=== PATIENT | female | born 1945 | race Caucasian/White ===

== ENCOUNTER → 2020-08-28 10:21 | Outpatient (REF) | payer MEDICARE, SELFPAY | LOC: ANHLAB 10:21 | PROVIDERS: PCP Internal Medicine; Visit Provider Nurse Practitioner | DX: C43.61 Malignant melanoma of right upper limb, including shoulder (principal) | CPT/HCPCS: 88305; 88342 ==

== ENCOUNTER 2020-09-24 14:22 | Outpatient (CLI) | payer MEDICARE, SELFPAY ==
--- NOTE | 2020-09-24 14:25 | ECG_ITS ---
Measurements Intervals [place] Rate: 65 P: 3 [place]: 138 QRS: -12 QRSD: 94 T: 10 QT: 406 QTc: 425 Interpretive Statements SINUS RHYTHM DELAYED PRECORDIAL R/S TRANSITION BORDERLINE ECG Electronically Signed On 09-24-2020 20:01:45 OVEN TECHNICIAN by Stephon Polk D.O.
[2020-09-24 15:00] LABS: Anion Gap 9 mmol/L (8-16); Blood Urea Nitrogen 46 mg/dL (7-17); Calcium 9.9 mg/dL (8.4-10.2); Carbon Dioxide 26 mmol/L (22-30); Chloride 107 mmol/L (98-107); Estimated Glomerular Filt Rate 37; Glucose 130 mg/dL (65-105); Potassium 4.2 mmol/L (3.4-5.0); Sodium 142 mmol/L (137-145)
== END 2020-09-24 14:23 | disposition home or self-care (01) ==
LOC: ANHSURGERY 14:25
PROVIDERS: Anesthesiology; PCP Internal Medicine; Visit Provider Surgery Plastic and Reconstructive Surgery
DX: Z01.818 Encounter for other preprocedural examination (principal); E11.9 Type 2 diabetes mellitus without complications; I10 Essential (primary) hypertension
CPT/HCPCS: 36415; 80048; 93005

== ENCOUNTER 2020-09-25 00:07 | Outpatient (CLI) | payer MEDICARE, SELFPAY ==
[2020-09-25 19:47] LABS: SARS-CoV-2 RNA PCR Negative
== END 2020-09-25 00:08 | disposition home or self-care (01) ==
LOC: ANHCOVIDDT 00:07
PROVIDERS: PCP Internal Medicine; Visit Provider Surgery Plastic and Reconstructive Surgery
DX: Z01.818 Encounter for other preprocedural examination (principal); Z20.828 Contact with and (suspected) exposure to other viral communicable diseases
CPT/HCPCS: 87635; C9803; U0003

== ENCOUNTER 2020-09-28 01:09 | Day surgery (SDC) | payer MEDICARE, SELFPAY ==
[2020-09-24 08:51] VITALS: BMI 29.2
--- NOTE | ~2020-09-28 | NM_ITS ---
EXAMINATION: NM sentinel node w imaging EXAM DATE: 09/28/2020, 6:50 a.m. INDICATION: C43.9 - Malignant melanoma of skin, unspecified. TECHNIQUE: 0.514 mCi Tc-99m Lymphoseek was injected in [two aliquots on either side of right upper a rm melanoma which was biopsied and doctor's office. Study is available for dictation on 10/05/2020. FINDINGS: Images demonstrate 2 right axillary lymph nodes with increased activity following injectio n. These were marked by the technologist prior to surgery. IMPRESSION: Two right axillary lymph nodes identified. Reviewed, dictated and finalized at location A. PHERAL VASCULAR TECH
[2020-09-28] MEDS: LACTATED RINGERS 1,000 ML 30 ML IV CONT (06:47)
[2020-09-28 06:51] LABS: Glucose Point of Care 135 (65-105)
--- NOTE | 2020-09-28 06:53 | WPDANESEPPF ---
Anes - Initial Pre Proc Eval Procedure: Operation Date: 09/28/20 07:30 Proposed Procedures p Excision Melanoma Right Arm with [place] Lymph Node Biopsy, - Zac Solomon MD s Possible Split Thickness Skin Graft - Zac Solomon MD Date/Time: 09/28/20 06:53 Surgeon: Zac Solomon MD Pre Op Diagnosis: melanoma right arm Patient Data Age: 75 Gender: F Height: 5 ft 1 in Weight: 70.35 kg Allergies Allergy/AdvReac Type Severity Reaction Status Date / Time No Known Allergies Allergy Verified 09/24/20 08:27 Home Medications Medication Instructions Recorded Confirmed Type aspirin 81 mg tablet,delayed 81 mg PO QPM 10/27/19 09/24/20 History release rosuvastatin 5 mg tablet 5 mg PO DAILY #90 tablet 10/27/19 09/24/20 Rx vit C-vit X-vixkoa-inhq ox-lutein 1 cap PO DAILY cap 10/27/19 09/24/20 History 226 mg-200 unit-5 mg-0.8 mg capsule diltiazem HCl 120 mg capsule,24 120 mg PO DAILY #90 cap 01/26/20 09/24/20 Rx hr,extended release lisinopril 10 mg tablet 10 mg PO DAILY #90 tablet 02/09/20 09/24/20 Rx blood sugar diagnostic #100 each 03/20/20 07/19/20 Rx hydrochlorothiazide 25 mg tablet 25 mg PO DAILY #90 tablet 06/25/20 09/24/20 Rx glimepiride 2 mg tablet 2 mg PO BID #180 tablet 09/13/20 09/24/20 Rx L. gasseri-B. bifidum-B longum 1 cap PO QAM 09/24/20 09/24/20 History [[facility]] gabapentin 300 mg PO BID 09/24/20 09/24/20 History loratadine [Claritin] 10 mg PO DAILY 09/24/20 09/24/20 History jxqtu-7e-nma-epa-fish oil-D3 [Fish 1 cap PO QAM 09/24/20 09/24/20 History Oil-Vit D3] vit C-E-zinc uk-lzjp-moo-zeax 1 cap PO BID 09/24/20 09/24/20 History [ICaps AREDS2] Laboratory Tests 09/28/20 06:46 POC Capillary Glucose 135 mg/dl H mg/dl (65-105) Patient hx anesthesia problems: other (gasping for air post op) Family hx anesthesia problems: none PMFSH Past Medical History Medical History Abnormal mammogram Acquired hammertoe of right foot Arthritis of foot, degenerative Essential (primary) hypertension History of cataract 2014 Hypertriglyceridemia Obstructive sleep apnea syndrome Primary osteoarthritis of both hands 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 Surgical History Surgical History (Updated 08/28/20 @ 10:06 by Diya Villanueva RN) History of hysterectomy 2009 Family History Family History Grandparent Depression, Onset Age: 91 Hypertension, Onset Age: 93 Acute myocardial infarction, Onset Age: 61 Cerebrovascular accident, Onset Age: 93 Family history of malignant neoplasm, Onset Age: 60 Sibling Acute myocardial infarction Mother Cerebrovascular accident, Onset Age: 89 Family history of congestive heart failure, Onset Age: 89 Father Family history of malignant neoplasm, Onset Age: 60 Other Family history of arthritis Family history of cardiovascular disease Family history of gout Social History Social History Smoking packs per day: 0.5 Smoking cigarettes per day: 10.0 Years smoked: 10 Smoking pack-years: 5.00 Smoking status: Never smoker Tobacco type: cigarettes Second hand tobacco smoke exposure: No Smoking end date: 11/16/1961 Alcohol intake: never Living arrangements: with family Spiritual care concerns: No Anes - Eval Final PreProcedure Day of Procedure 09/28/20 06:53 Patient weight: overweight Heart: regular rate and rhythm Lungs: clear to auscultation Airway: Mallampati scale class II Neurological: alert and oriented Last oral intake: >/= 8 hours ASA classification: III Emergent: no Anesthetic plan: proceed Anesthesia type and monitoring: general LMA and standard monitoring Informed Consent: The patient's anesthetic plan and its attendant
[2020-09-28 07:00] VITALS: BP 157/90; PULSE 77; RESP 16; TEMP 36.9; O2SAT 97
--- NOTE | 2020-09-28 07:01 | WPDHPUPDATE1 ---
History and Physical Update Update Date/Time: 09/28/20 07:01 History and Physical has been reviewed, including an updated exam of the patient. There are NO changes in the patient's condition. Risks, benefits, and alternatives have been discussed and questions answered. Patient agrees to proceed with procedure.
[2020-09-28] MEDS: ceFAZolin 2 GM/D5W 50 ML 2 GM/50 ML BAG IVPB (08:02)
[2020-09-28] MEDS: LIDO 1%/EPINEPHRINE 1:100,000 20 ML VIAL 10 ML INFILTRATE (08:28)
[2020-09-28 09:05] VITALS: BP 123/72; PULSE 80; RESP 16; TEMP 36.2; O2SAT 100
--- NOTE | 2020-09-28 09:12 | PM.PROC ---
Procedure Note - Detailed Date of procedure: 09/28/20 Pre-op diagnosis: melanoma right arm Post-op diagnosis: same Procedure performed: 1. Wide excision of melanoma right upper arm 6.5 cm 2. Complex closure right upper arm 7.5 cm 3. Right axillary sentinel biopsy Description of procedure: Preoperatively she went to radiology was injected with the radionucleotide. She was marked in the preoperative holding area with her verification. She was taken to the operating room placed supine on the operating room table. Anesthesia provided by anesthesiology and prepped and draped in a standard sterile fashion. Proceeded with axillary node 1st. 1% lidocaine and 0.25% Marcaine with epinephrine was used anesthetize locally. I used the probe in order to continue dissection until the node was identified. This was sub pectoralis major. Identified and removed. The background was well less than 10%. There is no evidence of neurovascular or other structure injury. I closed with 2-0 Vicryl followed by 3-0 Monocryl running subcuticular 4-0 Monocryl and tissue glue. The right upper arm was marked out with greater than 2 cm margins. 1% lidocaine and 0.25% Marcaine with epinephrine was used anesthetize locally. Fifteen blade used to make an incision I continued dissection down and was removed just superficial to the fascia. I undermined for closure and closed using 2-0 Vicryl followed by 3-0 Monocryl and or 3-0 nylon. Xeroform fluffs were placed for dressing. She was woken taken the PACU without difficulty. All instrument sponge counts were correct at the end of the case. Anesthesia: GLMA Surgeon: Zac Solomon MD Estimated blood loss (mL): 10 Drains: No Packing: No Pathology: yes Complications: No immediate complications Condition: stable Disposition: PACU
[2020-09-28 09:20] VITALS: BP 128/63; PULSE 77; RESP 12; TEMP 36.2; O2SAT 100
[2020-09-28 09:21] LABS: Glucose Point of Care 145 (65-105)
[2020-09-28 09:35] VITALS: BP 116/61; PULSE 74; RESP 14; O2SAT 99
--- NOTE | 2020-09-28 09:45 | SUR.PHASEI ---
PT AWAKE AND ALERT. DENIES PAIN. READY TO GO TO [facility]
[2020-09-28 09:55] VITALS: BP 147/66; PULSE 74
[2020-09-28 10:25] VITALS: BP 135/63; PULSE 72
== END 2020-09-28 10:48 | disposition home or self-care (01) ==
PROVIDERS: PCP Internal Medicine; Visit Provider Surgery Plastic and Reconstructive Surgery
PROC: (CPT 11606; principal; 2020-09-28 07:30)
DX: C43.61 Malignant melanoma of right upper limb, including shoulder (principal); I10 Essential (primary) hypertension; E78.1 Pure hyperglyceridemia; G47.33 Obstructive sleep apnea (adult) (pediatric); E11.3593 Type 2 diabetes mellitus with proliferative diabetic retinopathy without macular edema, bilateral; Z79.84 Long term (current) use of oral hypoglycemic drugs; Z87.891 Personal history of nicotine dependence
CPT/HCPCS: 11606; 13121; 38525; 36415; 78195; 80048; 87635; 88305; 88307; 93005; A9520; C9803; J0690; J1100; J2405; J2704; J3010; J7120; U0003

== ENCOUNTER 2020-10-26 09:33 | Outpatient (CLI) | payer MEDICARE, SELFPAY ==
[2020-10-26 09:49] LABS: Basophils Percent Auto 0.5 % (0.2-1.2); Eosinophils Absolute Auto 0.4 K/mm3 (0-0.3); Eosinophils Percent Auto 4.9 % (0-4.4); Hematocrit 34.7 % (37.0-47.0); Hemoglobin 11.5 g/dL (12.0-15.0); Immature Granulocyte Absolute 0.02 K/mm3 (0.00-0.031); Immature Granulocyte Percent A 0.2 % (0-0.5); Lymphocytes Absolute Auto 2.42 K/mm3 (0.9-3.2); Lymphocytes Percent Auto 28.6 % (18.3-44.2); Mean Corpuscular HGB Conc 33.1 g/dl (32-36); Mean Corpuscular Hemoglobin 28.3 pg (26-34); Mean Corpuscular Volume 85.5 fl (80-100); Mean Platelet Volume 9.1 fl (7.4-10.4); Monocytes Absolute Auto 0.6 K/mm3 (0.1-0.6); Monocytes Percent Auto 7.5 % (2.6-8.5); Neutrophils Absolute Auto 4.9 K/mm3 (1.3-6.7); Neutrophils Percent Auto 58.3 % (45.5-73.1); Platelet Count Result 275 k/mm3 (150-375); Red Blood Count 4.06 M/mm3 (4.2-5.4); Red Cell Distribution Width 12.8 % (11.5-14.5); White Blood Count 8.5 K/mm3 (4.5-10.0)
[2020-10-26 12:41] LABS: Alanine Aminotransferase 39 U/L (4-35); Albumin Level 4.2 g/dL (3.5-5.1); Alkaline Phosphatase 69 U/L (38-126); Anion Gap 9 mmol/L (8-16); Aspartate Amino Transferase 28 U/L (14-36); Bilirubin,Total 0.3 mg/dL (0.2-1.3); Blood Urea Nitrogen 29 mg/dL (7-17); Carbon Dioxide 28 mmol/L (22-30); Chloride 105 mmol/L (98-107); Estimated Glomerular Filt Rate 48; Glucose 161 mg/dL (65-105); Lactate Dehydrogenase 446 U/L (313-618); Potassium 4.3 mmol/L (3.4-5.0); Sodium 142 mmol/L (137-145)
== END 2020-10-26 09:34 | disposition home or self-care (01) ==
PROVIDERS: PCP Internal Medicine; Visit Provider Internal Medicine Hematology & Oncology
DX: C43.61 Malignant melanoma of right upper limb, including shoulder (principal)
CPT/HCPCS: 36415; 80053; 83615; 85025

== ENCOUNTER → 2021-02-25 12:39 | Outpatient (CLI) | payer MEDICARE, SELFPAY ==
--- NOTE | ~2021-02-25 | MM_ITS ---
EXAMINATION: MM screening mary BI w laron HISTORY: Screening TECHNIQUE: Craniocaudal and mediolateral oblique 3-D tomosynthesis images were obtained and synthetic 2-D images were generated. CAD analysis was submitted and interpreted. COMPARISON: Comparison to multiple prior studies sequentially, with oldest reviewed study dated 06/25. BREAST PARENCHYMAL COMPOSITION: There are scattered areas of fibroglandular density. FINDINGS: There is no evidence of suspicious mass, calcification, or architectural distortion to sugg est malignancy in either breast. There has been no suspicious interval change. IMPRESSION: 1. No mammographic evidence of malignancy. 2. Recommend routine screening mammography in one year. BI-RADS Category 1: Negative Reviewed, dictated and finalized at location A.
== END ==
PROVIDERS: PCP Internal Medicine; Visit Provider Internal Medicine
DX: Z12.31 Encounter for screening mammogram for malignant neoplasm of breast (principal)
CPT/HCPCS: 77063; 77067

== ENCOUNTER 2021-04-12 13:37 | Emergency (ER) | payer MEDICARE, SELFPAY ==
--- NOTE | ~2021-04-12 | US_ITS ---
EXAMINATION: US venous doppler LE RT DATE: 04/12/2021 14:20 INDICATION: Right lower limb pain. TECHNIQUE: Grayscale ultrasound images without and with compression and Doppler ultrasound images of the right lower extremity veins were obtained. COMPARISON: None. FINDINGS: The visualized portions of right common femoral vein, profunda (deep) femoral vein, femoral vein, pop liteal vein, peroneal veins, posterior tibial veins, and greater saphenous vein outflow are patent. IMPRESSION: 1. No deep venous thrombosis. Reviewed, dictated and finalized at location A.
[2021-04-12 13:39] VITALS: BP 159/62; PULSE 72; RESP 20; TEMP 36.6; O2SAT 99
--- NOTE | 2021-04-12 14:44 | ED.LOWEXIN ---
HPI - Extremity Injury (Lower) General Chief Complaint: Extremity Injury, Lower Stated Complaint: rle pain Time Seen by Provider: 04/12/21 13:44 Source: patient Mode of arrival: ambulatory Limitations: no limitations History of Present Illness HPI Narrative: Patient complaining of right lower extremity pain, from the back of her right thigh radiating all the way to her that started approximately 1 month ago. Patient states that her pain is mild, dull aching, nonradiating. Patient denies any injury to the area. Patient denies any chest pain, shortness of breath, fever or chills. Patient denies any joint swelling. Parent states that she is just worried about a blood clot. Related Data Home Medications Medication Instructions Recorded Confirmed aspirin 81 mg tablet,delayed 81 mg PO QPM 10/27/19 03/21/21 release vit C-vit P-szxoje-helo ox-lutein 1 cap PO DAILY cap 10/27/19 03/21/21 226 mg-200 unit-5 mg-0.8 mg capsule ICaps AREDS2 1 cap PO BID 09/24/20 03/21/21 [facility] 1 cap PO QAM 09/24/20 03/21/21 loratadine [Claritin] 10 mg PO DAILY 09/24/20 03/21/21 ovmul-3a-tpp-epa-fish oil-D3 [Fish 1 cap PO QAM 09/24/20 03/21/21 Oil-Vit D3] Allergies Allergy/AdvReac Type Severity Reaction Status Date / Time No Known Allergies Allergy Verified 03/19/21 09:32 Review of Systems Review of Systems: All systems reviewed & are unremarkable except as noted in HPI and below Constitutional: Constitutional: Denies body ache(s), Denies chills, Denies excessive sweating, Denies fatigue, Denies fever(s), Denies headache(s), Denies lethargy, Denies malaise, Denies weakness and Denies weight loss Eyes: Eyes: Denies blurry vision, Denies change in vision and Denies loss of vision ENT: Denies dizziness, Denies ear discharge, Denies headache(s), Denies lip swelling, Denies epistaxis, Denies nasal congestion, Denies neck pain, Denies throat swelling and Denies tongue swelling Cardiovascular: Cardiovascular: Denies chest pain, Denies chest pain at rest, Denies chest pain with activity, Denies diaphoresis, Denies rapid heart rate, Denies edema, Denies irregular heart rhythm, Denies lightheadedness, Denies palpitations, Denies dyspnea and Denies dyspnea on exertion Respiratory: Respiratory: Denies chest congestion, Denies cough, Denies hemoptysis, Denies dyspnea and Denies dyspnea on exertion Gastrointestinal: Gastrointestinal: Denies abdominal pain, Denies melena, Denies hematochezia, Denies diarrhea, Denies nausea, Denies vomiting and Denies hematemesis Musculoskeletal: Musculoskeletal: Denies abnormal gait, Denies deformity, Denies joint swelling, Denies limited range of motion, Denies neck pain and Denies numbness Neurologic: Denies Abnormal speech present, Denies abnormal gait, Denies confusion, Denies dizziness, Denies headache(s), Denies focal weakness, Denies loss of vision, Denies numbness, Denies Other visual disturbances, Denies Sensory deficit (Neuro) and Denies weakness Psychiatric: Psychiatric: Denies confusion, Denies depression, Denies auditory hallucinations, Denies homicidal ideation and Denies suicidal ideation Endocrine: Endocrine: Denies cold intolerance, Denies excessive sweating, Denies fatigue, Denies heat intolerance and Denies palpitations Hematologic/Lymphatic: Hematologic/Lymphatic: Denies easy bleeding and Denies easy bruising Allergic/Immunologic: Allergic/Immunologic: Denies lip swelling, Denies throat swelling and Denies tongue swelling PMFSH Past Medical History Medical History Abnormal mammogram Acquired hammertoe of right foot Arthritis of foot, degenerative Essential (primary) hypertension Hemoglobin A1c less than 7.0% 03/04/21 A1C = 6.4 History of cataract 2014 Hypertriglyceridemia Obstructive sleep apnea syndrome Osteoarthritis of carpometacarpal joint of right thumb Primary osteoarthritis of both hands Type 2 diabetes mellitus with pro
[2021-04-12 15:06] VITALS: BP 130/73; PULSE 60; RESP 18; TEMP 37.1; O2SAT 98
== END 2021-04-12 15:09 | disposition home or self-care (01) ==
PROVIDERS: Emergency Provider Emergency Medicine; PCP Internal Medicine
DX: M79.604 Pain in right leg (principal); E11.3593 Type 2 diabetes mellitus with proliferative diabetic retinopathy without macular edema, bilateral; I10 Essential (primary) hypertension; E78.1 Pure hyperglyceridemia; H26.9 Unspecified cataract; G47.33 Obstructive sleep apnea (adult) (pediatric); M19.079 Primary osteoarthritis, unspecified ankle and foot; M19.042 Primary osteoarthritis, left hand; M19.041 Primary osteoarthritis, right hand; M18.9 Osteoarthritis of first carpometacarpal joint, unspecified; Z79.82 Long term (current) use of aspirin; Z87.891 Personal history of nicotine dependence; Z79.84 Long term (current) use of oral hypoglycemic drugs
CPT/HCPCS: 93971; 99284

== ENCOUNTER 2021-07-29 10:01 | Outpatient (CLI) | payer MEDICARE, SELFPAY ==
[2021-07-29 10:18] LABS: Basophils Percent Auto 0.7 % (0.2-1.2); Eosinophils Absolute Auto 0.3 K/mm3 (0-0.3); Eosinophils Percent Auto 4.6 % (0-4.4); Hematocrit 33.1 % (37.0-47.0); Immature Granulocyte Absolute 0.02 K/mm3 (0.00-0.031); Immature Granulocyte Percent A 0.3 % (0-0.5); Lymphocytes Absolute Auto 1.95 K/mm3 (0.9-3.2); Lymphocytes Percent Auto 31.7 % (18.3-44.2); Mean Corpuscular HGB Conc 33.2 g/dl (32-36); Mean Corpuscular Hemoglobin 28.6 pg (26-34); Mean Corpuscular Volume 86.2 fl (80-100); Mean Platelet Volume 8.9 fl (7.4-10.4); Monocytes Absolute Auto 0.5 K/mm3 (0.1-0.6); Monocytes Percent Auto 8.1 % (2.6-8.5); Neutrophils Absolute Auto 3.4 K/mm3 (1.3-6.7); Neutrophils Percent Auto 54.6 % (45.5-73.1); Platelet Count Result 227 k/mm3 (150-375); Red Blood Count 3.84 M/mm3 (4.2-5.4); Red Cell Distribution Width 13.2 % (11.5-14.5); White Blood Count 6.2 K/mm3 (4.5-10.0)
[2021-07-29 10:21] LABS: Blood Urea Nitrogen 37 mg/dL (8-26); Carbon Dioxide 26 mmol/L (22-30); Chloride 107 mmol/L (98-109); Estimated Glomerular Filt Rate 40; Glucose 104 mg/dL (70-105); Potassium 4.5 mmol/L (3.5-4.9); Sodium 144 mmol/L (138-146)
[2021-07-29 18:44] LABS: Alanine Aminotransferase 37 U/L (4-35); Albumin Level 4.2 g/dL (3.5-5.1); Alkaline Phosphatase 68 U/L (38-126); Anion Gap 10 mmol/L (8-16); Aspartate Amino Transferase 69 U/L (14-36); Bilirubin,Total 0.3 mg/dL (0.2-1.3); Blood Urea Nitrogen 42 mg/dL (7-17); Calcium 9.9 mg/dL (8.4-10.2); Carbon Dioxide 23 mmol/L (22-30); Chloride 110 mmol/L (98-107); Estimated Glomerular Filt Rate 48; Glucose 96 mg/dL (65-110); Lactate Dehydrogenase 565 U/L (313-618); Potassium 4.7 mmol/L (3.4-5.0); Sodium 143 mmol/L (137-145)
== END 2021-07-29 10:02 | disposition home or self-care (01) ==
PROVIDERS: PCP Internal Medicine; Visit Provider Internal Medicine Hematology & Oncology
DX: C43.61 Malignant melanoma of right upper limb, including shoulder (principal)
CPT/HCPCS: 36415; 80048; 80053; 82607; 82728; 83615; 85025

== ENCOUNTER 2021-07-30 11:18 | Outpatient (CLI) | payer MEDICARE, SELFPAY ==
--- NOTE | ~2021-07-30 | XR_ITS ---
EXAMINATION: XR chest 2V 07/30/2021 11:46 INDICATION: Malignant melanoma PROCEDURE: 2 view chest COMPARISON: No prior studies for comparison. FINDINGS: The lungs are clear. The cardiomediastinal silhouette is within normal limits. There are no pleural effusions. There is no pneumothorax suspected. IMPRESSION: 1: NO ACUTE CARDIOPULMONARY DISEASE. Reviewed, dictated and finalized at location A.
== END 2021-07-30 11:19 | disposition home or self-care (01) ==
LOC: ANHIMG 11:23
PROVIDERS: PCP Internal Medicine; Visit Provider Internal Medicine Hematology & Oncology
DX: C43.61 Malignant melanoma of right upper limb, including shoulder (principal)
CPT/HCPCS: 71046

== ENCOUNTER 2022-04-22 12:40 | Outpatient (CLI) | payer MEDICARE, SELFPAY ==
--- NOTE | ~2022-04-22 | US_ITS ---
EXAMINATION: US soft tissue UE RT DATE: 04/22/2022 13:14 INDICATION: TECHNIQUE: Grayscale and Doppler ultrasound images of the right upper arm soft tissues were obtained. COMPARISON: None. FINDINGS: Superficial right upper arm scar from prior melanoma resection. No soft tissue mass detecte d. No soft tissue fluid collection. IMPRESSION: 1. No sonographic abnormality detected in the area of clinical concern. Reviewed, dictated and finalized at location K.
== END 2022-04-22 12:41 | disposition home or self-care (01) ==
LOC: ANHIMG 12:43
PROVIDERS: PCP Internal Medicine; Visit Provider Nurse Practitioner
DX: M79.89 Other specified soft tissue disorders (principal); Z85.820 Personal history of malignant melanoma of skin
CPT/HCPCS: 76882

== ENCOUNTER → 2022-06-30 10:56 | Outpatient (CLI) | payer MEDICARE, SELFPAY ==
--- NOTE | ~2022-06-30 | MM_ITS ---
EXAMINATION: MM screening mary BI w laron HISTORY: Screening mammogram TECHNIQUE: Craniocaudal and mediolateral oblique 3-D tomosynthesis images were obtained and synthetic 2-D images were generated. CAD analysis was submitted and interpreted. COMPARISON: 02/25/2021 bilateral screening mammogram 07/22/2017 bilateral diagnostic mammography and limited right breast ultrasound 06/25/2017 bilateral screening mammogram BREAST PARENCHYMAL COMPOSITION: There are scattered areas of fibroglandular density. FINDINGS: There are occasional scattered benign calcifications. There is no evidence of suspicious ma ss, calcification, or architectural distortion to suggest malignancy in either breast. There has been no suspicious interval change. IMPRESSION: 1. No mammographic evidence of malignancy. 2. Recommend routine screening mammography in one year. BI-RADS Category 2: Benign finding(s). Reviewed, dictated and finalized at location A.
== END ==
PROVIDERS: PCP Family Medicine; Visit Provider Family Medicine
DX: Z12.31 Encounter for screening mammogram for malignant neoplasm of breast (principal)
CPT/HCPCS: 77063; 77067

== ENCOUNTER 2022-07-14 15:22 | Emergency (ER) | payer MEDICARE, SELFPAY ==
[2022-07-14 15:45] VITALS: BP 150/71; PULSE 74; RESP 16; TEMP 36.2; O2SAT 98
--- NOTE | 2022-07-14 16:03 | ED.GENADULT ---
HPI - General Adult General Chief complaint: Extremity Problem,Nontraumatic Stated complaint: toe pain on left foot Time Seen by Provider: 07/14/22 16:03 Source: patient Mode of arrival: ambulatory Limitations: no limitations History of Present Illness HPI narrative: 77 y/o female presented for c/o left 2nd toe pain and redness. States pain started 5 days ago, then redness developed 2 days ago. Symptoms improved yesterday, but worsened today. She started taking colchicine Rates pain 5/10 Hx DM. Related Data Home Medications Medication Instructions Recorded Confirmed omega-3s 360 de-sqm-gtb-fish oil 1 cap PO QAM 09/24/20 07/14/22 1,200 mg-D3 1,000 unit capsule (Fish Oil-Vit D3) vit C 250 mg-vit E 200 unit-zinc 1 cap PO BID 09/24/20 07/14/22 ox 12.5 sj-wryzii-eeuqki-zeax capsule (ICaps AREDS2) multivitamin 1 tablet PO DAILY 07/14/22 07/14/22 pioglitazone 15 mg tablet 15 mg PO DAILY 07/14/22 07/14/22 Allergies Allergy/AdvReac Type Severity Reaction Status Date / Time No Known Allergies Allergy Verified 07/14/22 15:49 Review of Systems Review of Systems: CONSTITUTIONAL: Denies body aches, fever, chills CARDIOVASCULAR: Denies chest pain, palpitations, or edema. RESPIRATORY: Denies cough or dyspnea. SKIN: Denies rash, itching, or wounds. MUSCULOSKELETAL: reports toe pain NEUROLOGIC: Denies headache, numbness, tingling, or weakness. 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 Surgical History Surgical History History of hysterectomy 2009 Family History Family History Grandparent Depression, Onset Age: 91 Hypertension, Onset Age: 93 Acute myocardial infarction, Onset Age: 61 Cerebrovascular accident, Onset Age: 93 Family history of malignant neoplasm, Onset Age: 60 Sibling Acute myocardial infarction Mother Cerebrovascular accident, Onset Age: 89 Family history of congestive heart failure, Onset Age: 89 Father Family history of malignant neoplasm, Onset Age: 60 Other Family history of arthritis Family history of cardiovascular disease Family history of gout Social History Social History Smoking packs per day: 0.5 Smoking cigarettes per day: 10.0 Years smoked: 10 Smoking pack-years: 5.00 Smoking status: Former smoker Tobacco type: cigarettes Second hand tobacco smoke exposure: No Smoking end date: 11/16/1961 Alcohol intake: never Substance use: never Substance use type: does not use Gender identity (if verbalized by the patient): Female Spiritual care concerns: No Comments At time of signature, I have reviewed and agree with nursing past medical, surgical, social and family history unless otherwise noted. Please see nursing chart for further information. There is no relevant family history pertinent to the presenting complaint Exam Narrative: GENERAL: Well-appearing CHEST: No respiratory distress. HEART: Regular rate and rhythm. Normal and equal peripheral pulses. EXTREMITIES: Left 2nd toe redness and mild swelling to DIP and middle phalanx, tender with palpation c/w gout. Foot has normal strength and sensation, normal range of motion. No ecchymosis, open wounds. Nail intact without surrounding swellin
== END 2022-07-14 16:23 | disposition home or self-care (01) ==
PROVIDERS: Emergency Provider Nurse Practitioner Family; PCP Family Medicine
DX: M10.9 Gout, unspecified (principal); Z87.891 Personal history of nicotine dependence; I10 Essential (primary) hypertension; G47.33 Obstructive sleep apnea (adult) (pediatric); M19.042 Primary osteoarthritis, left hand; M19.041 Primary osteoarthritis, right hand; E11.3593 Type 2 diabetes mellitus with proliferative diabetic retinopathy without macular edema, bilateral
CPT/HCPCS: 99213; G0463

== ENCOUNTER 2022-07-22 11:03 | Outpatient (CLI) | payer MEDICARE, SELFPAY ==
[2022-07-22 11:25] LABS: Basophils Absolute Auto 0.1 K/mm3 (0.0-0.1); Basophils Percent Auto 0.6 % (0.2-1.2); Eosinophils Absolute Auto 0.5 K/mm3 (0-0.3); Eosinophils Percent Auto 5.3 % (0-4.4); Hemoglobin 11.5 g/dL (12.0-15.0); Immature Granulocyte Absolute 0.05 K/mm3 (0.00-0.031); Immature Granulocyte Percent A 0.6 % (0-0.5); Lymphocytes Absolute Auto 2.65 K/mm3 (0.9-3.2); Lymphocytes Percent Auto 31.3 % (18.3-44.2); Mean Corpuscular HGB Conc 32.9 g/dl (32-36); Mean Corpuscular Hemoglobin 28.7 pg (26-34); Mean Corpuscular Volume 87.3 fl (80-100); Mean Platelet Volume 9.2 fl (7.4-10.4); Monocytes Absolute Auto 0.7 K/mm3 (0.1-0.6); Monocytes Percent Auto 8.1 % (2.6-8.5); Neutrophils Absolute Auto 4.6 K/mm3 (1.3-6.7); Neutrophils Percent Auto 54.1 % (45.5-73.1); Platelet Count Result 285 k/mm3 (150-375); Red Blood Count 4.01 M/mm3 (4.2-5.4); Red Cell Distribution Width 13.2 % (11.5-14.5); White Blood Count 8.5 K/mm3 (4.5-10.0)
[2022-07-22 13:51] LABS: Anion Gap 7 mmol/L (8-16); Blood Urea Nitrogen 34 mg/dL (7-17); Calcium 10.1 mg/dL (8.4-10.2); Carbon Dioxide 27 mmol/L (22-30); Chloride 105 mmol/L (98-107); Estimated Glomerular Filt Rate 54; Glucose 202 mg/dL (65-110); Potassium 4.4 mmol/L (3.4-5.0); Sodium 139 mmol/L (137-145)
== END 2022-07-22 11:04 | disposition home or self-care (01) ==
LOC: ANHLAB 11:06
PROVIDERS: PCP Family Medicine; Visit Provider Internal Medicine Hematology & Oncology
DX: C43.61 Malignant melanoma of right upper limb, including shoulder (principal)
CPT/HCPCS: 36415; 80048; 85025

== ENCOUNTER 2022-09-04 07:00 | Outpatient (NON) | payer MEDICARE, SELFPAY | END 2022-09-05 12:22 | disposition home or self-care (01) | LOC: HOME HLTH 09-05 12:25 → ANHLAB 09-05 12:56 | PROVIDERS: PCP Family Medicine; Visit Provider Nurse Practitioner | DX: C43.62 Malignant melanoma of left upper limb, including shoulder (principal) | CPT/HCPCS: 88305 ==

== ENCOUNTER 2022-09-11 13:00 | Outpatient (NON) | payer MEDICARE, SELFPAY | END 2022-09-11 13:01 | disposition home or self-care (01) | LOC: ANHLAB 09-12 14:24 | PROVIDERS: PCP Family Medicine; Visit Provider Nurse Practitioner | DX: C43.62 Malignant melanoma of left upper limb, including shoulder (principal) | CPT/HCPCS: 88305; 88342 ==

== ENCOUNTER 2022-10-20 11:11 | Emergency (ER) | payer MEDICARE, SELFPAY ==
--- NOTE | 2022-10-20 11:14 | ED.URI ---
HPI - URI/Sore Throat General Chief Complaint: Upper Respiratory Infection Stated Complaint: SINUS DRAINAGE Time Seen by Provider: 10/20/22 11:14 Source: patient Mode of arrival: ambulatory Limitations: no limitations History of Present Illness HPI Narrative: Mary Kate is a 77-year-old female patient presenting to clinic today with complaints of sinus drainage x11 days. Stated her symptoms began the day after Thanksgiving. Reports that she is having a lot of sinus drainage and cough. Does have some sinus headaches. She denies having any current fevers. She denies any shortness of breath, chest pain, dizziness, or visual changes. MD elicited complaint: sore throat and nasal congestion Related Data Home Medications Medication Instructions Recorded Confirmed vit C 250 mg-vit E 200 unit-zinc 1 cap PO BID 09/24/20 10/20/22 ox 12.5 gd-lqpyti-ckfhet-zeax capsule (ICaps AREDS2) multivitamin 1 tablet PO DAILY 07/14/22 10/20/22 L.acidophilus-B.bifidum-B.longum 1 cap PO DAILY 07/16/22 10/20/22 240 mg (3 billion cell) capsule gabapentin 300 mg capsule See Rx Instructions .Route .COMPLEX 07/16/22 10/20/22 omega [id number]-lrze oil 600 1 cap PO DAILY 07/16/22 10/20/22 mg-20 mg-500 mcg-800 mcg capsule Allergies Allergy/AdvReac Type Severity Reaction Status Date / Time No Known Allergies Allergy Verified 10/20/22 11:22 Review of Systems Review of Systems: Pertinent positives per HPI. Patient denies any fever, chills, rash, headache, visual changes, dizziness, shortness of breath, chest pain, palpitations, nausea, vomiting, diarrhea, constipation, abdominal pain, or any urinary issues. [facility] Past Medical History Medical History Abnormal mammogram Acquired hammertoe of right foot Actinic keratosis Arthritis of foot, degenerative Benign mole Chronic kidney disease, stage 3 (moderate) Crossover toe deformity of right foot Easy bruising Eczema Essential (primary) hypertension Gout Hemoglobin A1c less than 7.0% 03/04/21 A1C = 6.4 History of cataract 2015 Hypertriglyceridemia Macular degeneration Melanoma Obstructive sleep apnea syndrome Osteoarthritis of carpometacarpal joint of right thumb Persistent headaches Personal history of malignant melanoma of skin Primary osteoarthritis of both hands Subcutaneous mass TMJ arthritis Trigger thumb of right hand Type 2 diabetes mellitus with hyperglycemia 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 of congestive heart failure, Onset Age: 89 Father Family history of malignant neoplasm, Onset Age: 60 Other Family history of arthritis Family history of cardiovascular disease Family history of gout Social History Social History Smoking packs per day: 0.5 Smoking cigarettes per day: 10.0 Years smoked: 10 Smoking pack-years: 5.00 Smoking status: Former smoker Tobacco type: cigarettes Second hand tobacco smoke exposure: No Smoking end date: 11/16/1961 Alcohol intake: current Alcohol use details: rarely Substance use: never Substance use type: does not use Lack of Transportation: No Lack of Food: Never True Current Housing: I Have Housing Concerned About Future Housing: No
[2022-10-20 11:25] VITALS: BP 159/70; PULSE 85; RESP 16; TEMP 36.7; O2SAT 98
== END 2022-10-20 11:34 | disposition home or self-care (01) ==
PROVIDERS: Emergency Provider Nurse Practitioner Family; PCP Family Medicine
DX: J01.90 Acute sinusitis, unspecified (principal); Z87.891 Personal history of nicotine dependence; M10.9 Gout, unspecified; E78.1 Pure hyperglyceridemia; H35.30 Unspecified macular degeneration; I12.9 Hypertensive chronic kidney disease with stage 1 through stage 4 chronic kidney disease, or unspecified chronic kidney disease; E11.22 Type 2 diabetes mellitus with diabetic chronic kidney disease; N18.30 Chronic kidney disease, stage 3 unspecified; E11.3593 Type 2 diabetes mellitus with proliferative diabetic retinopathy without macular edema, bilateral; M18.11 Unilateral primary osteoarthritis of first carpometacarpal joint, right hand; M19.042 Primary osteoarthritis, left hand; M19.041 Primary osteoarthritis, right hand; Z85.820 Personal history of malignant melanoma of skin
CPT/HCPCS: 99213; G0463

== ENCOUNTER 2022-11-26 08:41 | Outpatient (CLI) | payer MEDICARE, SELFPAY ==
--- NOTE | ~2022-11-26 | DEXA_ITS ---
Bone Density Report Name: EDWIGE WHITMAN Age: 77 Sex: Female Ethnicity: White Date of : 1945 Indication: postmenopausal; screening for osteoporosis; height loss; Referring Provider: DANIELE WEAVER Study: Bone densitometry was performed. Exam Date: November 26, 2022 Accession number: [id number] Bone Density: Region BMD T-score Z-score Classification AP Spine(L1-L4) 1.162 1.0 3.6 Normal Femoral Neck (Left) 0.657 -1.7 0.5 Osteopenia Total Hip (Left) 0.922 -0.2 1.8 Normal Femoral Neck (Right) 0.792 -0.5 1.7 Normal Total Hip (Right) 0.929 -0.1 1.9 Normal Total Hip Mean 0.926 -0.2 1.9 Normal World Health Organization criteria for BMD impression classify patients as: Normal (T-score at or above -1.0), Osteopenia (T-score between -1.0 and -2.5), or Osteoporosis (T-score at or below -2.5). 10-year Fracture Risk(1): Major Osteoporotic Fracture 13% Hip Fracture 3.2% Reported Risk Factors: [place] (), Neck BMD=0.657, BMI=31.2 (1) FRAX(R) Version 3.08. Fracture probability calculated for an untreated patient. Fracture probability may be lower if the patient has received treatment. Clinical Information Provided by Patient: Patient maximum height was 62 Menopause Age: 57 Drinks caffeinated beverages Onset of menses at age 12 Number of children 4 Impression: The patient has low bone mass, based on the Left Femoral Neck T-score. The patient has an estimated ten-year risk of hip fracture of 3.2% and an estimated ten-year risk of major fracture of 13%, based on the WHO FRAX algorithm. Discussion: BONE DENSITY IS LOW AT ONE OR MORE SKELETAL SITES. THE PATIENT'S BMD AND CLINICAL RISK FACTORS CONTRIBUTE TO THIS PATIENT'S INCREASED RISK OF FRACTURE. This patient's lowest T-score is low at one or more skeletal sites. It meets the World Health Organization's (WHO) criteria for ?low bone mass? (T-score between -1.0 and -2.5). The patient's 10-year risk of hip fracture as calculated by FRAX exceeds the threshold where pharmacological therapy is recommended by the National Osteoporosis Foundation (NOF). However, all treatment decisions require clinical judgment and consideration of individual patient factors, including patient preferences, comorbidities, previous drug use, risk factors not captured in the FRAX model (e.g., frailty, falls, vitamin D deficiency, increased bone turnover, interval significant decline in bone density) and possible under or overestimation of fracture risk by FRAX. The patient should follow a healthful lifestyle (good nutrition with adequate calcium and vitamin D, and appropriate weight-bearing exercise). Follow-Up: Consider a repeat BMD and Vertebral Fracture Assessment (VFA) exam in 2 years or sooner if medically necessary, to reassess this patien
== END 2022-11-26 08:42 | disposition home or self-care (01) ==
LOC: ANHIMG 08:43
PROVIDERS: PCP Family Medicine; Visit Provider Internal Medicine Endocrinology, Diabetes & Metabolism
DX: Z78.0 Asymptomatic menopausal state (principal); Z85.820 Personal history of malignant melanoma of skin; M85.852 Other specified disorders of bone density and structure, left thigh
CPT/HCPCS: 77080

== ENCOUNTER 2022-12-24 00:07 | Day surgery (SDC) | payer MEDICARE, SELFPAY ==
[2022-12-11 13:16] VITALS: BMI 30.8
[2022-12-24 07:46] VITALS: BP 163/68; PULSE 80; RESP 16; TEMP 36.1; O2SAT 98
[2022-12-24] MEDS: LACTATED RINGERS 1,000 ML 150 ML IV CONT (07:50)
[2022-12-24 07:56] LABS: Glucose Point of Care 121 mg/dl (65-105)
--- NOTE | 2022-12-24 08:38 | WPDANESEPPF ---
Anes - Initial Pre Proc Eval Procedure: Operation Date: 12/24/22 09:00 Proposed Procedures p Esophagogastroduodenoscopy - Minh Mo MD Date/Time: 12/24/22 08:38 Surgeon: Minh Mo MD Pre Op Diagnosis: GERD Patient Data Age: 77 Gender: F Height: 1.55 m Weight: 73.5 kg Last Vital Signs Temp 97 F L 12/24/22 07:46 Pulse 80 12/24/22 07:46 Resp 16 12/24/22 07:46 BP 163/68 H 12/24/22 07:46 Pulse Ox 98 12/24/22 07:46 O2 Del Method Room Air 12/24/22 07:46 Allergies Allergy/AdvReac Type Severity Reaction Status Date / Time No Known Allergies Allergy Verified 12/24/22 07:45 Home Medications Medication Instructions Recorded Confirmed Type vit C 250 mg-vit E 200 unit-zinc 1 cap PO BID 09/24/20 12/24/22 History ox 12.5 ox-owtbpe-qkukpv-zeax capsule (ICaps AREDS2) hydrochlorothiazide 25 mg tablet 25 mg PO DAILY #90 tabs 09/05/21 12/24/22 Rx blood sugar diagnostic (Accu-Chek #100 ea 01/10/22 10/14/22 Rx Valeria Plus test strips) multivitamin 1 tablet PO DAILY 07/14/22 12/24/22 History diltiazem HCl 120 mg capsule,24 120 mg PO DAILY #90 caps 07/15/22 12/24/22 Rx hr,extended release L.acidophilus-B.bifidum-B.longum 1 cap PO DAILY 07/16/22 12/24/22 History 240 mg (3 billion cell) capsule omega [id number]-R-KS-tnvc oil 600 1 cap PO DAILY 07/16/22 12/24/22 History mg-20 mg-500 mcg-800 mcg capsule lisinopril 10 mg tablet 10 mg PO DAILY #90 tabs 08/11/22 12/24/22 Rx rosuvastatin 10 mg tablet 10 mg PO DAILY #90 tabs 10/14/22 12/24/22 Rx gabapentin 300 mg capsule 300 mg PO TID 11/18/22 12/24/22 History glimepiride 2 mg tablet 2 mg PO BID 11/18/22 12/24/22 History Laboratory Tests 12/24/22 07:50 POC Capillary Glucose 121 mg/dl H mg/dl (65-105) Patient hx anesthesia problems: none Family hx anesthesia problems: none Results Review: All pre-operative results and documents have been reviewed as part of the pre-operative evaluation. [facility] Past Medical History Medical History Abnormal mammogram Acquired hammertoe of right foot Actinic keratosis Arthritis of foot, degenerative Benign mole Chronic kidney disease, stage 3 (moderate) Crossover toe deformity of right foot Easy bruising Eczema Essential (primary) hypertension Gout Hemoglobin A1c less than 7.0% 03/04/21 A1C = 6.4 History of cataract 2014 Hypertriglyceridemia Macular degeneration Melanoma Obstructive sleep apnea syndrome Osteoarthritis of carpometacarpal joint of right thumb Persistent headaches Personal history of malignant melanoma of skin Primary osteoarthritis of both hands Subcutaneous mass TMJ arthritis Trigger thumb of right hand Type 2 diabetes mellitus with hyperglycemia 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 of congestive heart failure, Onset Age: 89 Father Family history of malignant neoplasm, Onset Age: 60 Other Family history of arthritis Family history of cardiovascular disease Family history of gout Social History Social History Smoking packs per day: 0.5 Smoking cigarettes per day: 10.0 Years smoked: 10 Smoking pack-years: 5.00 Smoking status: Former smoker Tobacco
--- NOTE | 2022-12-24 08:55 | PM.HPGS ---
History of Present Illness History of Present Illness Consent: Risks, benefits, and alternatives have been discussed and questions answered. Patient agrees to proceed with procedure. Chief complaint: GERD Narrative: Mary Kate Avila is a 77 year old female with gerd and sometimes dysphagia after eating, never had egd, only using tums as needed Review of Systems Constitutional: Constitutional: Denies headache(s) and Denies weakness Eyes: Eyes: Denies blurry vision ENT: Reports Normal hearing present, Denies headache(s) and Denies neck pain Cardiovascular: Cardiovascular: Denies chest pain and Denies dyspnea Respiratory: Respiratory: Denies dyspnea Gastrointestinal: Gastrointestinal: Reports no additional gastrointestinal complaints Genitourinary: Genitourinary: Denies dysuria Musculoskeletal: Musculoskeletal: Denies neck pain Integumentary/Breasts: Skin/Breast: Denies dry skin Neurologic: Reports Normal hearing present, Denies headache(s) and Denies weakness Psychiatric: Psychiatric: Denies anxiety Endocrine: Endocrine: Denies change in body appearance Hematologic/Lymphatic: Hematologic/Lymphatic: Denies easy bleeding Allergic/Immunologic: Allergic/Immunologic: Denies urticaria PMF Past Medical History Medical History (Updated 12/24/22 @ 08:56 by Minh Mo MD) Abnormal mammogram Acquired hammertoe of right foot Actinic keratosis Arthritis of foot, degenerative Benign mole Chronic kidney disease, stage 3 (moderate) Crossover toe deformity of right foot Dysphagia Easy bruising Eczema Essential (primary) hypertension GERD (gastroesophageal reflux disease) Gout Hemoglobin A1c less than 7.0% 03/04/21 A1C = 6.4 History of cataract 2014 Hypertriglyceridemia Macular degeneration Melanoma Obstructive sleep apnea syndrome Osteoarthritis of carpometacarpal joint of right thumb Persistent headaches Personal history of malignant melanoma of skin Primary osteoarthritis of both hands Subcutaneous mass TMJ arthritis Trigger thumb of right hand Type 2 diabetes mellitus with hyperglycemia 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 Surgical History Surgical History History of hysterectomy 2009 History of melanoma excision 2019 Family History Family History Grandparent Depression, Onset Age: 91 Hypertension, Onset Age: 93 Acute myocardial infarction, Onset Age: 61 Cerebrovascular accident, Onset Age: 93 Family history of malignant neoplasm, Onset Age: 60 Sibling Acute myocardial infarction Mother Cerebrovascular accident, Onset Age: 89 Family history of congestive heart failure, Onset Age: 89 Father Family history of malignant neoplasm, Onset Age: 60 Other Family history of arthritis Family history of cardiovascular disease Family history of gout Social History Social History Smoking packs per day: 0.5 Smoking cigarettes per day: 10.0 Years smoked: 10 Smoking pack-years: 5.00 Smoking status: Former smoker Tobacco type: cigarettes Second hand tobacco smoke exposure: No Smoking end date: 11/16/1961 Alcohol intake: current Alcohol use details: rarely Substance use: never Substance use type: does not use Lack of Transportation: No Lack of Food: Never True Current Housing: I Have Housing Concerned About Future Housing: No Difficulty Paying Gas/Electric Bills: No Difficulty Paying for Meds: No Currently Unemployed: No Education: Decline to Answer Difficulty w/ Childcare or Family Care: No Living arrangements: with family Occupation/Education: retired Gender identity (if verbalized by the patient): Female Spiritual care concerns: No Meds Alexei
[2022-12-24 09:12] VITALS: BP 131/81; PULSE 70; RESP 22; O2SAT 97
[2022-12-24 09:22] VITALS: BP 129/78; PULSE 68; RESP 21; O2SAT 100
[2022-12-24 09:33] VITALS: BP 147/88; PULSE 67; RESP 20; O2SAT 100
== END 2022-12-24 09:40 | disposition home or self-care (01) ==
PROVIDERS: PCP Family Medicine; Visit Provider Internal Medicine Gastroenterology
PROC: 0DJ08ZZ Inspection of Upper Intestinal Tract, Via Natural or Artificial Opening Endoscopic (ICD-10-PCS; CPT 43235; principal; 2022-12-24 09:00)
DX: K21.00 Gastro-esophageal reflux disease with esophagitis, without bleeding (principal); R13.10 Dysphagia, unspecified; K29.70 Gastritis, unspecified, without bleeding; I12.9 Hypertensive chronic kidney disease with stage 1 through stage 4 chronic kidney disease, or unspecified chronic kidney disease; E11.22 Type 2 diabetes mellitus with diabetic chronic kidney disease; N18.30 Chronic kidney disease, stage 3 unspecified; G47.33 Obstructive sleep apnea (adult) (pediatric); H35.30 Unspecified macular degeneration; E11.3593 Type 2 diabetes mellitus with proliferative diabetic retinopathy without macular edema, bilateral; Z87.891 Personal history of nicotine dependence; E66.9 Obesity, unspecified; Z68.30 Body mass index [BMI] 30.0-30.9, adult; Z79.84 Long term (current) use of oral hypoglycemic drugs
CPT/HCPCS: 43239; 43450; 82948; 88305; J2704; J7120

== ENCOUNTER 2023-01-01 09:55 | Emergency (ER) | payer MEDICARE, SELFPAY ==
--- NOTE | 2023-01-01 09:57 | ED.FEMALEGU ---
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 Patient states that she is due for a bladder sling next week. States that she has had issues with her bladder but has not been on antibiotics recently. Denies any abdominal pain, blood in the urine, nausea or vomiting. No other acute complaints. No acute distress noted. Patient aware of the plan of care. Some parts of this dictation were generated by voice recognition software and may contain typographical and/or grammatical inaccuracies. Related Data Home Medications Medication Instructions Recorded Confirmed vit C 250 mg-vit E 200 unit-zinc 1 cap PO BID 09/24/20 01/01/23 ox 12.5 iq-nlaagd-wckqha-zeax capsule (ICaps AREDS2) multivitamin 1 tablet PO DAILY 07/14/22 01/01/23 L.acidophilus-B.bifidum-B.longum 1 cap PO DAILY 07/16/22 01/01/23 240 mg (3 billion cell) capsule omega [id number]-TW-qzkk oil 600 1 cap PO DAILY 07/16/22 01/01/23 mg-20 mg-500 mcg-800 mcg capsule gabapentin 300 mg capsule 300 mg PO TID 11/18/22 01/01/23 glimepiride 2 mg tablet 2 mg PO BID 11/18/22 01/01/23 Allergies Allergy/AdvReac Type Severity Reaction Status Date / Time No Known Allergies Allergy Verified 01/01/23 10:10 Review of Systems Review of Systems: CONSTITUTIONAL: Denies fever, chills, or sweats. EYES: Denies visual changes, redness, or discharge. ENT: Denies rhinorrhea, congestion, sore throat, or otalgia. CARDIOVASCULAR: Denies chest pain, palpitations, or edema. RESPIRATORY: Denies cough or dyspnea. GASTROINTESTINAL: Denies abdominal pain, nausea, vomiting, or diarrhea. GENITOURINARY: Reports of dysuria cloudy urine SKIN: Denies rash or itching. MUSCULOSKELETAL: Denies back pain, joint pain, or myalgia. NEUROLOGIC: Denies headache, numbness, or weakness. All other systems reviewed are negative, except as documented in HPI. [facility] Past Medical History Medical History (Updated 01/01/23 @ 10:38 by CADE Tate) Abnormal mammogram Acquired hammertoe of right foot Actinic keratosis Arthritis of foot, degenerative Benign mole Chronic kidney disease, stage 3 (moderate) Crossover toe deformity of right foot Dysphagia Easy bruising Eczema Essential (primary) hypertension GERD (gastroesophageal reflux disease) Gout Hemoglobin A1c less than 7.0% 03/04/21 A1C = 6.4 History of cataract 2014 Hypertriglyceridemia Macular degeneration Melanoma Obstructive sleep apnea syndrome Osteoarthritis of carpometacarpal joint of right thumb Persistent headaches Personal history of malignant melanoma of skin Primary osteoarthritis of both hands Subcutaneous mass TMJ arthritis Trigger thumb of right hand Type 2 diabetes mellitus with hyperglycemia 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 of congestive heart failure, Onset Age: 89 Father Family history of malignant neoplasm, Onset Age: 60 Other Family history of arthritis Family history of cardiovascular disease Family history of gout Social History Social History (Reviewed
[2023-01-01 10:14] VITALS: BP 142/89; PULSE 77; RESP 16; TEMP 36.4; O2SAT 100
== END 2023-01-01 10:52 | disposition home or self-care (01) ==
PROVIDERS: Emergency Provider Nurse Practitioner Family; PCP Family Medicine
DX: N39.0 Urinary tract infection, site not specified (principal); Z87.891 Personal history of nicotine dependence; I12.9 Hypertensive chronic kidney disease with stage 1 through stage 4 chronic kidney disease, or unspecified chronic kidney disease; E11.22 Type 2 diabetes mellitus with diabetic chronic kidney disease; N18.30 Chronic kidney disease, stage 3 unspecified; K21.9 Gastro-esophageal reflux disease without esophagitis; M10.9 Gout, unspecified; M19.042 Primary osteoarthritis, left hand; M19.041 Primary osteoarthritis, right hand; H35.30 Unspecified macular degeneration; E11.3593 Type 2 diabetes mellitus with proliferative diabetic retinopathy without macular edema, bilateral; Z85.820 Personal history of malignant melanoma of skin; M18.11 Unilateral primary osteoarthritis of first carpometacarpal joint, right hand; Z79.84 Long term (current) use of oral hypoglycemic drugs
CPT/HCPCS: 81003; 87086; 87147; 87181; 87186; 99213; G0463

== ENCOUNTER 2023-01-29 10:26 | Emergency (ER) | payer MEDICARE, SELFPAY ==
[2023-01-29 10:34] VITALS: BP 140/113; PULSE 86; RESP 16; TEMP 36.4; O2SAT 99
--- NOTE | 2023-01-29 10:47 | ED.URI ---
HPI - URI/Sore Throat General Chief Complaint: Urogenital-Female Stated Complaint: PAINFUL URINATION & HEAD/CHEST CONGESTION Time Seen by Provider: 01/29/23 10:47 Source: patient and RN notes reviewed Mode of arrival: ambulatory Limitations: no limitations History of Present Illness HPI Narrative: 77-year-old female presents multiple concerns. She reports on Thursday she started having dysuria, frequency, urgency, cloudy urine. Reports last week she saw her urologist a device placed her bladder. Reports her symptoms started then. She reports on Thursday she also started having cough, chest congestion, rhinorrhea, nasal congestion. Reports she has been taking Mucinex without relief. She reports low-grade temperature. Denies abdominal pain nausea, back pain. She reports exertional shortness of breath MD elicited complaint: cough and other (UTI) Related Data Home Medications Medication Instructions Recorded Confirmed vit C 250 mg-vit E 200 unit-zinc 1 cap PO BID 09/24/20 01/29/23 ox 12.5 lg-tqxfab-nhlgue-zeax capsule (ICaps AREDS2) multivitamin 1 tablet PO DAILY 07/14/22 01/29/23 L.acidophilus-B.bifidum-B.longum 1 cap PO DAILY 07/16/22 01/29/23 240 mg (3 billion cell) capsule omega [id number]-L-FH-qzgn oil 600 1 cap PO DAILY 07/16/22 01/29/23 mg-20 mg-500 mcg-800 mcg capsule gabapentin 300 mg capsule 300 mg PO TID 11/18/22 01/29/23 Allergies Allergy/AdvReac Type Severity Reaction Status Date / Time No Known Allergies Allergy Verified 01/29/23 10:33 Review of Systems Review of Systems: CONSTITUTIONAL: Report malaise, low-grade fever. EYES: Denies visual changes, redness, or discharge. ENT: Reports rhinorrhea, congestion. Denies sinus pain, otalgia and sore throat. CARDIOVASCULAR: Denies chest pain, palpitations, or edema. RESPIRATORY: Reports cough and chest congestion. Denies dyspnea. GASTROINTESTINAL: Denies abdominal pain, nausea, vomiting, diarrhea SKIN: Denies rash or itching. : Reports dysuria, frequency, urgency, cloudy urine MUSCULOSKELETAL: Denies myalgia. NEUROLOGIC: Denies headache. All systems reviewed & are unremarkable except as noted in HPI and below PMFSH Past Medical History Medical History Abnormal mammogram Acquired hammertoe of right foot Actinic keratosis Arthritis of foot, degenerative Benign mole Chronic kidney disease, stage 3 (moderate) Crossover toe deformity of right foot Dysphagia Easy bruising Eczema Essential (primary) hypertension GERD (gastroesophageal reflux disease) Gout Hemoglobin A1c less than 7.0% 03/04/21 A1C = 6.4 History of cataract 2014 Hypertriglyceridemia Macular degeneration Melanoma Obstructive sleep apnea syndrome Osteoarthritis of carpometacarpal joint of right thumb Persistent headaches Personal history of malignant melanoma of skin Primary osteoarthritis of both hands Subcutaneous mass TMJ arthritis Trigger thumb of right hand Type 2 diabetes mellitus with hyperglycemia 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 of congestive heart failure, Onset Age: 89 Father Family history of malignant neoplasm, Onset Age: 60 Other Family history of arthritis Family history of cardiovascular disease Family history of gout Social History So
== END 2023-01-29 11:00 | disposition home or self-care (01) ==
PROVIDERS: Emergency Provider Nurse Practitioner; PCP Family Medicine
DX: N39.0 Urinary tract infection, site not specified (principal); J06.9 Acute upper respiratory infection, unspecified; R05.9 Cough, unspecified; Z87.891 Personal history of nicotine dependence; I12.9 Hypertensive chronic kidney disease with stage 1 through stage 4 chronic kidney disease, or unspecified chronic kidney disease; E11.22 Type 2 diabetes mellitus with diabetic chronic kidney disease; N18.30 Chronic kidney disease, stage 3 unspecified; K21.9 Gastro-esophageal reflux disease without esophagitis; M10.9 Gout, unspecified; E78.1 Pure hyperglyceridemia; E11.3593 Type 2 diabetes mellitus with proliferative diabetic retinopathy without macular edema, bilateral; H35.30 Unspecified macular degeneration; M18.11 Unilateral primary osteoarthritis of first carpometacarpal joint, right hand; M19.042 Primary osteoarthritis, left hand; M19.041 Primary osteoarthritis, right hand
CPT/HCPCS: 81003; 87077; 87086; 87186; 99213; G0463

== ENCOUNTER 2023-03-04 11:35 | Emergency (ER) | payer MEDICARE, SELFPAY ==
--- NOTE | 2023-03-04 11:40 | ED.EYEPROB ---
HPI - Eye Problem General Chief complaint: Eye Problems Stated complaint: EYE SWELLING Time Seen by Provider: 03/04/23 11:46 Source: patient and RN notes reviewed Mode of arrival: ambulatory Limitations: no limitations History of Present Illness HPI Narrative: 77-year-old female presents with concern for tenderness next to the left eye that started last night. Reports she woke up this morning with swelling under the left eye. She denies vision changes, pain with eye movements, eye pain or tenderness. She reports the lower lid is mildly tender to palpation. She denies fever, general malaise. She denies eye irritation, itchiness, purulent drainage. She denies intervention. MD chief complaint: other (Eyelid swelling) Related Data Home Medications Medication Instructions Recorded Confirmed vit C 250 mg-vit E 200 unit-zinc 1 cap PO BID 09/24/20 03/04/23 ox 12.5 nq-epqors-htjpch-zeax capsule (ICaps AREDS2) multivitamin 1 tablet PO DAILY 07/14/22 03/04/23 L.acidophilus-B.bifidum-B.longum 1 cap PO DAILY 07/16/22 03/04/23 240 mg (3 billion cell) capsule omega 3-I3-[id number]-C-LU-fcba oil 600 1 cap PO DAILY 07/16/22 03/04/23 mg-20 mg-500 mcg-800 mcg capsule gabapentin 300 mg capsule 300 mg PO TID 11/18/22 03/04/23 Allergies Allergy/AdvReac Type Severity Reaction Status Date / Time No Known Allergies Allergy Verified 03/04/23 11:45 Review of Systems Review of Systems: CONSTITUTIONAL: Denies malaise, chills, sweats, or fever. EYES: Denies visual changes. Denies eye redness, irritation, discharge. Reports tenderness next to the left eye, reports lower eyelid swelling with tenderness to palpation ENT: Denies rhinorrhea, congestion, sinus pain, otalgia or sore throat. SKIN: Denies rash or itching. NEUROLOGIC: Denies numbness, weakness, or headache. PSYCHIATRIC: Denies anxiety or depression. All systems reviewed & are unremarkable except as noted in HPI and below PMFSH Past Medical History Medical History Abnormal mammogram Acquired hammertoe of right foot Actinic keratosis Arthritis of foot, degenerative Benign mole Chronic kidney disease, stage 3 (moderate) Crossover toe deformity of right foot Dysphagia Easy bruising Eczema Essential (primary) hypertension GERD (gastroesophageal reflux disease) Gout Hemoglobin A1c less than 7.0% 03/04/21 A1C = 6.4 History of cataract 2014 Hypertriglyceridemia Macular degeneration Melanoma Obstructive sleep apnea syndrome Osteoarthritis of carpometacarpal joint of right thumb Persistent headaches Personal history of malignant melanoma of skin Primary osteoarthritis of both hands Subcutaneous mass TMJ arthritis Trigger thumb of right hand Type 2 diabetes mellitus with hyperglycemia 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 of congestive heart failure, Onset Age: 89 Father Family history of malignant neoplasm, Onset Age: 60 Other Family history of arthritis Family history of cardiovascular disease Family history of gout Social History Social History Smoking packs per day: 0.5 Smoking cigarettes per day: 10.0 Years smoked: 10 Smoking pack-years: 5.00 Smoking status: Former smoker Tobacco type: ci
[2023-03-04 11:42] VITALS: BP 155/77; PULSE 82; RESP 16; TEMP 36.3; O2SAT 99
[2023-03-04 11:47] VITALS: BP 155/77; PULSE 82; RESP 16; TEMP 36.3; O2SAT 99
== END 2023-03-04 12:00 | disposition home or self-care (01) ==
PROVIDERS: Emergency Provider Nurse Practitioner; PCP Family Medicine
DX: L03.213 Periorbital cellulitis (principal); Z87.891 Personal history of nicotine dependence; I12.9 Hypertensive chronic kidney disease with stage 1 through stage 4 chronic kidney disease, or unspecified chronic kidney disease; E11.22 Type 2 diabetes mellitus with diabetic chronic kidney disease; N18.30 Chronic kidney disease, stage 3 unspecified; K21.9 Gastro-esophageal reflux disease without esophagitis; M10.9 Gout, unspecified; E78.1 Pure hyperglyceridemia; M19.042 Primary osteoarthritis, left hand; M19.041 Primary osteoarthritis, right hand; E11.3593 Type 2 diabetes mellitus with proliferative diabetic retinopathy without macular edema, bilateral; Z85.820 Personal history of malignant melanoma of skin
CPT/HCPCS: 99213; G0463

== ENCOUNTER 2023-03-12 12:59 | Outpatient (NON) | payer MEDICARE, SELFPAY | END 2023-03-12 13:00 | disposition home or self-care (01) | LOC: ANHLAB 03-13 13:01 | PROVIDERS: PCP Family Medicine; Visit Provider Nurse Practitioner | DX: D49.2 Neoplasm of unspecified behavior of bone, soft tissue, and skin (principal) | CPT/HCPCS: 88305 ==

== ENCOUNTER 2023-03-27 11:51 | Outpatient (CLI) | payer MEDICARE, SELFPAY ==
--- NOTE | 2023-03-27 12:42 | ECG_ITS ---
Measurements Intervals [place] Rate: 71 P: 6 MA: 138 QRS: -6 QRSD: 92 T: 13 QT: 388 QTc: 423 Interpretive Statements SINUS RHYTHM DELAYED PRECORDIAL R/S TRANSITION BORDERLINE ECG COMPARED TO ECG 09/24/2020 14:59:54 NO SIGNIFICANT CHANGES Electronically Signed On 03-27-2023 13:01:52 CDT by Stephon Polk D.O.
[2023-03-27 12:58] LABS: Basophils Absolute Auto 0.1 K/mm3 (0.0-0.1); Basophils Percent Auto 0.9 % (0.2-1.2); Eosinophils Absolute Auto 0.5 K/mm3 (0-0.3); Eosinophils Percent Auto 7.4 % (0-4.4); Hematocrit 32.7 % (37.0-47.0); Hemoglobin 10.7 g/dL (12.0-15.0); Immature Granulocyte Absolute 0.02 K/mm3 (0.00-0.031); Immature Granulocyte Percent A 0.3 % (0-0.5); Lymphocytes Absolute Auto 2.13 K/mm3 (0.9-3.2); Mean Corpuscular HGB Conc 32.7 g/dl (32-36); Mean Corpuscular Hemoglobin 29.3 pg (26-34); Mean Corpuscular Volume 89.6 fl (80-100); Mean Platelet Volume 8.9 fl (7.4-10.4); Monocytes Absolute Auto 0.6 K/mm3 (0.1-0.6); Monocytes Percent Auto 8.6 % (2.6-8.5); Neutrophils Absolute Auto 3.4 K/mm3 (1.3-6.7); Neutrophils Percent Auto 50.8 % (45.5-73.1); Platelet Count Result 247 k/mm3 (150-375); Red Blood Count 3.65 M/mm3 (4.2-5.4); Red Cell Distribution Width 12.4 % (11.5-14.5); White Blood Count 6.7 K/mm3 (4.5-10.0)
[2023-03-27 13:07] LABS: Alanine Aminotransferase 34 U/L (6-35); Albumin Level 4.4 g/dL (3.5-5.1); Alkaline Phosphatase 71 U/L (38-126); Anion Gap 7 mmol/L (8-16); Aspartate Amino Transferase 30 U/L (14-36); Bilirubin,Total 0.2 mg/dL (0.2-1.3); Blood Urea Nitrogen 31 mg/dL (7-17); Calcium 9.2 mg/dL (8.4-10.2); Carbon Dioxide 27 mmol/L (22-30); Chloride 108 mmol/L (98-107); Estimated Glomerular Filt Rate 43; Glucose 140 mg/dL (65-110); Potassium 4.7 mmol/L (3.4-5.0); Sodium 142 mmol/L (137-145)
[2023-03-27 13:33] LABS: INR 0.9; Prothrombin Time 12.7 Seconds (11.1-14.7)
[2023-03-27 13:34] LABS: Partial Thromboplastin Time 33.5 SECONDS (22.3-36.8)
== END 2023-03-27 11:52 | disposition home or self-care (01) ==
LOC: ANHSURGERY 11:57
PROVIDERS: PCP Family Medicine; Visit Provider Urology
DX: I10 Essential (primary) hypertension (principal); Z01.818 Encounter for other preprocedural examination
CPT/HCPCS: 36415; 80053; 85025; 85610; 85730; 86850; 86900; 86901; 93005

== ENCOUNTER 2023-04-03 02:04 | Day surgery (SDC) | payer MEDICARE, SELFPAY ==
--- NOTE | 2023-03-27 11:13 | PC.NURSE ---
PRE-OP INSTRUCTIONS, PLEASE READ CAREFULLY Report to the Outpatient Waiting Room, entrance under the green pavilion located off [facility], at time _0900_ on date _04/03/23_. Planned Procedure Time: _1100_. PACK A SMALL OVERNIGHT BAG AND LEAVE IN THE CAR Time changes happen often and if your time is changed the preop area will call you the afternoon before. - You and your visitor will be asked to self-screen and do not enter if you have any COVID symptoms. - A mask is optional within the hospital at this time. -VISITING HOURS 8AM-8PM Patients may have clear liquids (water, carbonated beverages, clear teas, apple juice) until 3 hours prior to surgery (0800 AM) with a maximum of 20 ounces. - No food from midnight until time of surgery Take the following medications with a SIP of water the morning of surgery: _DILTIAZEM, & NASAL SPRAY IF NEEDED_ DO NOT STOP ANY OF YOUR OTHER PRESCRIPTION MEDICATIONS PRIOR TO SURGERY ?EXCEPT THE FOLLOWING Medications to discontinue VALDES - _MULTIVITAMIN & SUPPLEMENTS 7 DAYS PRIOR TO SURGERY, Date to take last dose 03/27/23_ Please no make-up, nail belizean, hairspray, perfume, deodorant, or body powder the day of surgery. No jewelry (including any body piercings) or valuables the day of surgery, leave them at home. Please take a shower or bath the night before, or the morning of, surgery with an antibacterial soap. Wear comfortable, loose fitting clothing. - Jewelry must be removed prior to entering the operating room. Rings and piercings that are not removed may be cut off. - The hospital will not accept responsibility for valuables. - Please leave all valuables, including medications, at home the day of surgery. If you are going home after surgery, a licensed truck driver flatbed must drive you home. - NO public transportation without another adult if you receive anesthesia. - We recommend that an adult stay with you for 24 hours following discharge. - We also recommend that you do not drive, make important decision, drink alcoholic beverages, or take any drugs that were not prescribed by your health care provider for at least 24 hours after your discharge time. Follow any additional instructions given to you from your surgeon. If you or anyone in your household have experienced Covid symptoms in the past week, please notify your surgeon or the nurse liaison at the phone number below for possible testing. Instructions given to _PATIENT_and asked if any additional questions and then verbalized understanding. Patient advised to call surgeon office or pre surgery nurse liaison [phone] if any additional questions.
[2023-03-27 12:18] VITALS: BP 136/80; PULSE 86; RESP 20; TEMP 36.8; O2SAT 99; BMI 31.7
--- NOTE | 2023-03-28 11:13 | PM.IMHP ---
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 not sexually active. Desires surgical correction Review of Systems Review of Systems: All systems reviewed & are unremarkable except as noted in HPI and below PMFSH Past Medical History Medical History Abnormal mammogram Acquired hammertoe of right foot Actinic keratosis Arthritis of foot, degenerative Benign mole Chronic kidney disease, stage 3 (moderate) Colon cancer screening Crossover toe deformity of right foot Dysphagia Easy bruising Eczema Essential (primary) hypertension GERD (gastroesophageal reflux disease) Gout Hemoglobin A1c less than 7.0% 03/04/21 A1C = 6.4 History of cataract 2014 Hypertriglyceridemia Macular degeneration Melanoma Obstructive sleep apnea syndrome Osteoarthritis of carpometacarpal joint of right thumb Persistent headaches Personal history of malignant melanoma of skin Primary osteoarthritis of both hands Subcutaneous mass TMJ arthritis Trigger thumb of right hand Type 2 diabetes mellitus with hyperglycemia 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 of congestive heart failure, Onset Age: 89 Father Family history of malignant neoplasm, Onset Age: 60 Other Family history of arthritis Family history of cardiovascular disease Family history of gout Social History Social History Smoking packs per day: 0.5 Smoking cigarettes per day: 10.0 Years smoked: 10 Smoking pack-years: 5.00 Smoking status: Former smoker Tobacco type: cigarettes Second hand tobacco smoke exposure: No Smoking end date: 11/16/61 Alcohol intake: current Alcohol use details: STATES RARELY - MAYBE 3/YEAR Substance use: never Substance use type: does not use Lack of Transportation: No Lack of Food: Never True Current Housing: I Have Housing Concerned About Future Housing: No Difficulty Paying Gas/Electric Bills: No Difficulty Paying for Meds: No Currently Unemployed: No Education: Decline to Answer Difficulty w/ Childcare or Family Care: No Living arrangements: with family Occupation/Education: retired Gender identity (if verbalized by the patient): Female Spiritual care concerns: No Meds Home Medications and Allergies Home Medications Medication Instructions Recorded Confirmed Type vit C 250 mg-vit E 200 unit-zinc 1 cap PO BID 09/24/20 03/27/23 History ox 12.5 xw-lfsmhi-nxubxo-zeax capsule (ICaps AREDS2) blood sugar diagnostic (Accu-Chek #100 ea 01/10/22 03/27/23 Rx Valeria Plus test strips) multivitamin 1 tablet PO DAILY 07/14/22 03/27/23 History diltiazem HCl 120 mg capsule,24 120 mg PO DAILY #90 caps 07/15/22 03/27/23 Rx hr,extended release omega 3-Z2-[id number]-[id number]-YU-yswq oil 600 1 cap PO DAILY 07/16/22 03/27/23 History mg-20 mg-500 mcg-800 mcg capsule lisinopril 10 mg tablet 10 mg PO DAILY #90 tabs 08/11/22 03/27/23 Rx rosuvastatin 10 mg tablet 10 mg PO DAILY #90 tabs 10/14/22 03/27/23 Rx gabapentin 300 mg capsule See Rx Instructions .Route .COMPLEX 11/18/22 03/27/23 History hydrochlorothiazide 25 mg tablet 25 mg PO DAILY #90 tabs
--- NOTE | 2023-04-02 09:48 | WPDANESEPPF ---
Anes - Initial Pre Proc Eval Procedure: Operation Date: 04/03/23 11:00 Proposed Procedures p Colpocleisis, - Mart Baca MD s Cystoscopy, Injection Bulking Agent - Mart Baca MD Date/Time: 04/02/23 09:48 Surgeon: Mart Baca MD Pre Op Diagnosis: prolapse Patient Data Age: 77 Gender: F Height: 1.52 m Weight: 73.8 kg Last Vital Signs Temp 36.8 C 03/27/23 12:18 Pulse 86 03/27/23 12:18 Resp 20 03/27/23 12:18 BP 136/80 03/27/23 12:18 Pulse Ox 99 03/27/23 12:18 O2 Del Method Room Air 03/27/23 12:18 Allergies Allergy/AdvReac Type Severity Reaction Status Date / Time No Known Allergies Allergy Verified 03/19/23 10:36 Home Medications Medication Instructions Recorded Confirmed Type vit C 250 mg-vit E 200 unit-zinc 1 cap PO BID 09/24/20 03/27/23 History ox 12.5 kd-tzimlo-icjywi-zeax capsule (ICaps AREDS2) blood sugar diagnostic (Accu-Chek #100 ea 01/10/22 03/27/23 Rx Valeria Plus test strips) multivitamin 1 tablet PO DAILY 07/14/22 03/27/23 History diltiazem HCl 120 mg capsule,24 120 mg PO DAILY #90 caps 07/15/22 03/27/23 Rx hr,extended release omega 3-Z4-[id number]-W-RE-amwg oil 600 1 cap PO DAILY 07/16/22 03/27/23 History mg-20 mg-500 mcg-800 mcg capsule lisinopril 10 mg tablet 10 mg PO DAILY #90 tabs 08/11/22 03/27/23 Rx rosuvastatin 10 mg tablet 10 mg PO DAILY #90 tabs 10/14/22 03/27/23 Rx gabapentin 300 mg capsule See Rx Instructions .Route .COMPLEX 11/18/22 03/27/23 History hydrochlorothiazide 25 mg tablet 25 mg PO DAILY #90 tabs 01/01/23 03/27/23 Rx alendronate 70 mg tablet (Fosamax) 70 mg PO WEEKLY #14 tabs 01/15/23 03/27/23 Rx flash glucose sensor (FreeStyle #1 ea 01/15/23 03/27/23 Rx Duy 2 Sensor kit) ipratropium bromide 21 mcg (0.03 2 spray intranasal TID PRN nasal 01/29/23 03/27/23 Rx %) nasal spray drainage #30 mL omeprazole 40 mg capsule,delayed 40 mg PO DAILY #30 caps 03/19/23 03/27/23 Rx release glimepiride 2 mg tablet 2 mg PO BID 90 days #180 tabs 03/23/23 03/27/23 Rx Colon Health 1 cap DAILY 03/27/23 History Prevagen 1 tab-cap DAILY 03/27/23 History diphenhydramine HCl 25 mg tablet 25 mg PO TID PRN Congestion 03/27/23 03/27/23 History (Benadryl Allergy) Patient hx anesthesia problems: none Family hx anesthesia problems: none Results Review: All pre-operative results and documents have been reviewed as part of the pre-operative evaluation. [facility] Past Medical History Medical History Abnormal mammogram Acquired hammertoe of right foot Actinic keratosis Arthritis of foot, degenerative Benign mole Chronic kidney disease, stage 3 (moderate) Colon cancer screening Crossover toe deformity of right foot Dysphagia Easy bruising Eczema Essential (primary) hypertension GERD (gastroesophageal reflux disease) Gout Hemoglobin A1c less than 7.0% 03/04/21 A1C = 6.4 History of cataract 2014 Hypertriglyceridemia Macular degeneration Melanoma Obstructive sleep apnea syndrome Osteoarthritis of carpometacarpal joint of right thumb Persistent headaches Personal history of malignant melanoma of skin Primary osteoarthritis of both hands Subcutaneous mass TMJ arthritis Trigger thumb of right hand Type 2 diabetes mellitus with hyperglycemia 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
[2023-04-03] VITALS (9 sets, daily range): BP systolic 112–167; BP diastolic 68–85; PULSE 62–76; RESP 10–20; TEMP 36–36.2; O2SAT 97–100
--- NOTE | 2023-04-03 07:18 | WPDHPUPDATE1 ---
History and Physical Update Update Date/Time: 04/03/23 07:18 History and Physical has been reviewed, including an updated exam of the patient. There are NO changes in the patient's condition. Risks, benefits, and alternatives have been discussed and questions answered. Patient agrees to proceed with procedure.
[2023-04-03 09:55] LABS: Glucose Point of Care 157 mg/dl (65-105)
[2023-04-03] MEDS: LACTATED RINGERS 1,000 ML 30 ML IV CONT ×2 (10:36→13:11)
[2023-04-03] MEDS: ceFAZolin 2 GM/D5W 50 ML 2 GM/50 ML BAG IVPB (11:13)
[2023-04-03] MEDS: BUPIVACAINE/EPINEPHRINE 0.25% 10 ML VIAL 20 ML INFILTRATE (11:39)
--- NOTE | 2023-04-03 12:36 | W.PM.PROC2 ---
Procedure Note - Detailed Date of Procedure 04/03/23 Pre-op Diagnosis Cystocele, rectocele, female perineal laxity, intrinsic sphincter deficiency Post-op Diagnosis Same Procedure Performed Cystocele repair, rectocele repair, colpocleisis, perineorrhaphy, injection of suburethral implant material Surgeon Mart Baca MD Anesthesia General Indications This with posthysterectomy vaginal vault prolapse. She also has intrinsic sphincter deficiency. She is not sexually active. She presents for the above. She understands risks of bleeding, infection, damage to any organs, damage to the retract bowel, fistula formation, recurrence of prolapse, postoperative voiding dysfunction including incontinence and retention, hip and leg pain, inability to have penetrative intercourse. She agrees to proceed Description of Procedure She was correctly identified. Informed consent obtained. She from the operating room. She was given general anesthesia. She was placed in dorsal lithotomy position. She was prepped and draped in a sterile fashion. Time-out performed. I placed Molina catheter. I placed a [place] retractor. She had vaginal prolapse well beyond the introitus. I grasped the prolapse with Allis clamps. I mara 2 rectangle shaped areas on the anterior and posterior wall. I anesthetized the posterior vaginal wall. I removed the mucosa from the posterior vaginal wall. I then did the same on the anterior vaginal wall. I performed a plication repair of cystocele and rectocele plicating the perivaginal tissues. I did so in a pursestring fashion completing a classic type colpocleisis. This completely reduced the prolapse. I took great care not to injure underlying structures such as the bladder or bowel. I then closed the mucosa in of interrupted horizontal mattress suture. This completed the colpocleisis. There was excellent hemostasis. I then mara out a keith-shaped area of skin on the perineum. I anesthetized the skin. I removed this area of skin. I then performed a perineorrhaphy with 0 Vicryl suture. A is a 2-0 Vicryl to close mucosa. There was excellent perineal support and narrowing of the vagina. I then performed cystoscopy. She had moderate trabeculations. There was no surgical artifact the bladder or urethra. There are no bladder abnormalities or injuries. Bilateral ureteral patency was documented by placing guidewires up both ureters. Her urethra was open consistent with intrinsic sphincter deficiency I then chose a side the mid urethra 2 cm distal to bladder neck. I injected bulking agent circumferentially around the urethra coapted the urethra. The Molina catheter was left out. I once again assured hemostasis. Bladder was left full. She was awakened transferred to PACU in stable condition Estimated Blood Loss 30 Drains No Packing No Pathology None sent Complications No immediate complications Condition Stable Disposition PACU
[2023-04-03 13:01] LABS: Glucose Point of Care 96 mg/dl (65-105)
== END 2023-04-03 14:35 | disposition home or self-care (01) ==
PROVIDERS: PCP Family Medicine; Visit Provider Urology
PROC: (CPT 57120; principal; 2023-04-03 11:00)
PROC: 3E0K8GC Introduction of Other Therapeutic Substance into Genitourinary Tract, Via Natural or Artificial Opening Endoscopic (ICD-10-PCS; CPT 57260; 2023-04-03 11:00)
DX: N99.3 Prolapse of vaginal vault after hysterectomy (principal); N36.42 Intrinsic sphincter deficiency (ISD); Z87.891 Personal history of nicotine dependence; N18.30 Chronic kidney disease, stage 3 unspecified; K21.9 Gastro-esophageal reflux disease without esophagitis; E11.22 Type 2 diabetes mellitus with diabetic chronic kidney disease; I12.9 Hypertensive chronic kidney disease with stage 1 through stage 4 chronic kidney disease, or unspecified chronic kidney disease; Z85.820 Personal history of malignant melanoma of skin
CPT/HCPCS: 57260; 51715; 36415; 80053; 82948; 85025; 85610; 85730; 86850; 86900; 86901; 93005; C1758; C1769; J0690; J2370; J2405; J2704; J3010; J7030; J7120; L8606

== ENCOUNTER 2023-04-16 10:32 | Emergency (ER) | payer MEDICARE, SELFPAY ==
[2023-04-16 10:41] VITALS: BP 134/81; PULSE 77; RESP 16; TEMP 36.4; O2SAT 98
--- NOTE | 2023-04-16 10:53 | ED.SKABFB ---
HPI - Skin/Abscess/Foreign Bdy General Chief complaint: Skin/Abscess/Foreign Body Stated complaint: poison shirley Time Seen by Provider: 04/16/23 10:46 Source: patient and RN notes reviewed Mode of arrival: ambulatory Limitations: no limitations History of Present Illness HPI narrative: Patient presents today complaining of possible poison shirley rash to her left posterior upper leg and right wrist. Rash has been present for 2 days and has been worsening since onset. States it was passed on to her from her . She has been using calamine lotion with mild relief. She also takes a daily antihistamine. Patient had bladder surgery approximately 10 days ago and is concerned that the rash may spread to her genitals. Related Data Home Medications Medication Instructions Recorded Confirmed vit C 250 mg-vit E 200 unit-zinc 1 cap PO BID 09/24/20 04/16/23 ox 12.5 nc-pbuhka-xnicnk-zeax capsule (ICaps AREDS2) multivitamin 1 tablet PO DAILY 07/14/22 04/16/23 omega 8-F7-F15I25-E-ZR-eufr oil 600 1 cap PO DAILY 07/16/22 04/16/23 mg-20 mg-500 mcg-800 mcg capsule gabapentin 300 mg capsule See Rx Instructions .Route .COMPLEX 11/18/22 04/16/23 Colon Health 1 cap DAILY 03/27/23 04/16/23 Prevagen 1 tab-cap DAILY 03/27/23 04/16/23 diphenhydramine HCl 25 mg tablet 25 mg PO TID PRN Congestion 03/27/23 04/16/23 (Benadryl Allergy) Allergies Allergy/AdvReac Type Severity Reaction Status Date / Time No Known Allergies Allergy Verified 04/16/23 10:42 Review of Systems Review of Systems: CONSTITUTIONAL: Denies body aches, fever, chills, or sweats. EYES: Denies visual changes, redness, or discharge. ENT: Denies rhinorrhea, congestion, sore throat, or otalgia. CARDIOVASCULAR: Denies chest pain, palpitations, or edema. RESPIRATORY: Denies cough or dyspnea. GASTROINTESTINAL: Denies abdominal pain, nausea, vomiting, or diarrhea. GENITOURINARY: Denies dysuria or hematuria. SKIN: Denies wounds.+ pruritic rash MUSCULOSKELETAL: Denies back pain, joint pain, or myalgia. NEUROLOGIC: Denies headache, numbness, tingling, or weakness. PSYCH: Denies depression or anxiety. [facility] Past Medical History Medical History Abnormal mammogram Acquired hammertoe of right foot Actinic keratosis Arthritis of foot, degenerative Benign mole Chronic kidney disease, stage 3 (moderate) Colon cancer screening Crossover toe deformity of right foot Dysphagia Easy bruising Eczema Essential (primary) hypertension GERD (gastroesophageal reflux disease) Gout Hemoglobin A1c less than 7.0% 03/04/21 A1C = 6.4 History of cataract 2014 Hypertriglyceridemia Macular degeneration Melanoma Obstructive sleep apnea syndrome Osteoarthritis of carpometacarpal joint of right thumb Persistent headaches Personal history of malignant melanoma of skin Primary osteoarthritis of both hands Subcutaneous mass TMJ arthritis Trigger thumb of right hand Type 2 diabetes mellitus with hyperglycemia 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 of congestive heart failure, Onset Age: 89 Father Family history of malignant neoplasm, Onset Age: 60 Other Family history of arthritis Family history of cardiovascular disease Family history of gout Social Hist
== END 2023-04-16 11:06 | disposition home or self-care (01) ==
PROVIDERS: Emergency Provider Nurse Practitioner; PCP Family Medicine
DX: L25.5 Unspecified contact dermatitis due to plants, except food (principal); I12.9 Hypertensive chronic kidney disease with stage 1 through stage 4 chronic kidney disease, or unspecified chronic kidney disease; E11.22 Type 2 diabetes mellitus with diabetic chronic kidney disease; N18.30 Chronic kidney disease, stage 3 unspecified; Z87.891 Personal history of nicotine dependence
CPT/HCPCS: 99213; G0463

== ENCOUNTER 2023-05-20 08:32 | Emergency (ER) | payer MEDICARE, SELFPAY ==
--- NOTE | 2023-05-20 08:43 | ED.SKABFB ---
HPI - Skin/Abscess/Foreign Bdy General Chief complaint: Skin/Abscess/Foreign Body Stated complaint: poison shirley Time Seen by Provider: 05/20/23 08:43 Source: patient and RN notes reviewed History of Present Illness HPI narrative: Patient is a 77-year-old female who presents to urgent care with complaints of poison shirley. Patient states she has been using triamcinolone at home. Patient states her came in contact with poison shirley on Thursday and she started itching after doing his laundry. Patient states that she has used steroids before without any complications. Other acute complaints. No acute distress noted. Patient aware of the plan care. Some parts of this dictation were generated by voice recognition software and may contain typographical and/or grammatical inaccuracies. Related Data Home Medications Medication Instructions Recorded Confirmed vit C 250 mg-vit E 200 unit-zinc 1 cap PO BID 09/24/20 04/22/23 ox 12.5 ch-xgiogm-pbvtcj-zeax capsule (ICaps AREDS2) multivitamin 1 tablet PO DAILY 07/14/22 04/22/23 omega 6-[id number]-[id number]-R-[id number]-jsqt oil 600 1 cap PO DAILY 07/16/22 04/22/23 mg-20 mg-500 mcg-800 mcg capsule gabapentin 300 mg capsule See Rx Instructions .Route .COMPLEX 11/18/22 04/22/23 Colon Health 1 cap DAILY 03/27/23 04/22/23 Prevagen 1 tab-cap DAILY 03/27/23 04/22/23 diphenhydramine HCl 25 mg tablet 25 mg PO TID PRN Congestion 03/27/23 04/22/23 (Benadryl Allergy) omeprazole 40 mg capsule,delayed 20 mg PO DAILY 04/22/23 04/22/23 release pioglitazone 15 mg tablet 15 mg PO DAILY 04/22/23 04/22/23 Allergies Allergy/AdvReac Type Severity Reaction Status Date / Time No Known Allergies Allergy Verified 05/20/23 08:49 Review of Systems Review of Systems: CONSTITUTIONAL: Denies fever, chills, or sweats. EYES: Denies visual changes, redness, or discharge. ENT: Denies rhinorrhea, congestion, sore throat, or otalgia. CARDIOVASCULAR: Denies chest pain, palpitations, or edema. RESPIRATORY: Denies cough or dyspnea. GASTROINTESTINAL: Denies abdominal pain, nausea, vomiting, or diarrhea. GENITOURINARY: Denies dysuria or hematuria. SKIN: Reports of poison shirley to bilateral arms posterior neck MUSCULOSKELETAL: Denies back pain, joint pain, or myalgia. NEUROLOGIC: Denies headache, numbness, or weakness. All other systems reviewed are negative, except as documented in HPI. [facility] Past Medical History Medical History Abnormal mammogram Acquired hammertoe of right foot Actinic keratosis Arthritis of foot, degenerative Benign mole Chronic kidney disease, stage 3 (moderate) Colon cancer screening Crossover toe deformity of right foot Dysphagia Easy bruising Eczema Essential (primary) hypertension GERD (gastroesophageal reflux disease) Gout Hemoglobin A1c less than 7.0% 03/04/21 A1C = 6.4 History of cataract 2014 Hypertriglyceridemia Macular degeneration Melanoma Obstructive sleep apnea syndrome Osteoarthritis of carpometacarpal joint of right thumb Persistent headaches Personal history of malignant melanoma of skin Primary osteoarthritis of both hands Subcutaneous mass TMJ arthritis Trigger thumb of right hand Type 2 diabetes mellitus with hyperglycemia 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
[2023-05-20 08:44] VITALS: BP 126/62; PULSE 99; RESP 16; TEMP 35.8; O2SAT 99
== END 2023-05-20 08:53 | disposition home or self-care (01) ==
PROVIDERS: Emergency Provider Nurse Practitioner Family; PCP Family Medicine
DX: L23.7 Allergic contact dermatitis due to plants, except food (principal); I10 Essential (primary) hypertension; K21.9 Gastro-esophageal reflux disease without esophagitis; E78.1 Pure hyperglyceridemia; M10.9 Gout, unspecified; H35.30 Unspecified macular degeneration; E11.3593 Type 2 diabetes mellitus with proliferative diabetic retinopathy without macular edema, bilateral; Z79.84 Long term (current) use of oral hypoglycemic drugs; I12.9 Hypertensive chronic kidney disease with stage 1 through stage 4 chronic kidney disease, or unspecified chronic kidney disease; E11.22 Type 2 diabetes mellitus with diabetic chronic kidney disease; N18.30 Chronic kidney disease, stage 3 unspecified; Z85.820 Personal history of malignant melanoma of skin
CPT/HCPCS: 99213; G0463

== ENCOUNTER 2023-08-18 09:21 | Emergency (ER) | payer MEDICARE, SELFPAY ==
[2023-08-18 09:33] VITALS: BP 103/70; PULSE 88; RESP 16; TEMP 36.1; O2SAT 99
--- NOTE | 2023-08-18 09:34 | ED.EXTPRO ---
HPI - Extremity Problem General Chief complaint: Extremity Problem,Nontraumatic Stated complaint: L TOE PAIN Time Seen by Provider: 08/18/23 09:34 Source: patient, RN notes reviewed and old records reviewed Mode of arrival: ambulatory Limitations: no limitations History of Present Illness HPI Narrative: 78-year-old female presents to the [facility] with complaints of left great and 2nd toe inflammation, redness that was sudden onset yesterday. Patient reports she has a history of gout and feels exactly the same. Has a history of chronic kidney disease. Related Data Home Medications Medication Instructions Recorded Confirmed multivitamin 1 tablet PO DAILY 07/14/22 08/18/23 omega [id number]-BL-tqzx oil 600 1 cap PO DAILY 07/16/22 08/18/23 mg-20 mg-500 mcg-800 mcg capsule gabapentin 300 mg capsule See Rx Instructions .Route .COMPLEX 11/18/22 08/18/23 Lactobacillus rhamnosus-Bifidobac. 1 cap PO DAILY 07/15/23 08/18/23 animalis 3 billion cell capsule ([email or web address]) Allergies Allergy/AdvReac Type Severity Reaction Status Date / Time No Known Allergies Allergy Verified 08/18/23 09:37 Review of Systems Review of Systems: All systems reviewed & are unremarkable except as noted in HPI and below Constitutional: Constitutional: Reports no additional constitutional complaints Eyes: Eyes: Reports no additional eye complaints ENT: Reports system reviewed and no additional complaints, except as documented Cardiovascular: Cardiovascular: Reports no additional cardiovascular complaints, Denies chest pain and Denies dyspnea Respiratory: Respiratory: Reports no additional respiratory complaints, Denies chest congestion, Denies cough and Denies dyspnea Gastrointestinal: Gastrointestinal: Reports no additional gastrointestinal complaints, Denies abdominal pain, Denies nausea and Denies vomiting Musculoskeletal: Musculoskeletal: Reports as per HPI and Reports arthralgias (Left great toe) Integumentary/Breasts: Skin/Breast: Reports system reviewed and no additional complaints, except as docu Neurologic: Reports system reviewed and no additional complaints, except as documented Psychiatric: Psychiatric: Reports no additional psychiatric complaints Allergic/Immunologic: Allergic/Immunologic: Reports no additional allergic/immunologic complaints PMFSH Past Medical History Medical History Abnormal mammogram Acquired hammertoe of right foot Actinic keratosis Arthritis of foot, degenerative Benign mole Chronic kidney disease, stage 3 (moderate) Colon cancer screening Crossover toe deformity of right foot Dysphagia Easy bruising Eczema Essential (primary) hypertension GERD (gastroesophageal reflux disease) Gout Hemoglobin A1c less than 7.0% 03/04/21 A1C = 6.4 History of cataract 2014 Hypertriglyceridemia Lumbar radicular pain Macular degeneration Melanoma Obstructive sleep apnea syndrome Osteoarthritis of carpometacarpal joint of right thumb Persistent headaches Personal history of malignant melanoma of skin Primary osteoarthritis of both hands Subcutaneous mass TMJ arthritis Trigger thumb of right hand Type 2 diabetes mellitus with hyperglycemia 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
== END 2023-08-18 09:45 | disposition home or self-care (01) ==
PROVIDERS: Emergency Provider Nurse Practitioner; PCP Family Medicine
DX: M10.9 Gout, unspecified (principal); N18.30 Chronic kidney disease, stage 3 unspecified; K21.9 Gastro-esophageal reflux disease without esophagitis; Z85.820 Personal history of malignant melanoma of skin; E11.22 Type 2 diabetes mellitus with diabetic chronic kidney disease; I12.9 Hypertensive chronic kidney disease with stage 1 through stage 4 chronic kidney disease, or unspecified chronic kidney disease; Z87.891 Personal history of nicotine dependence
CPT/HCPCS: 99213; G0463

== ENCOUNTER 2023-09-05 08:48 | Emergency (ER) | payer MEDICARE, SELFPAY ==
[2023-09-05 09:03] VITALS: BP 120/69; PULSE 86; RESP 16; TEMP 36.7; O2SAT 100
--- NOTE | 2023-09-05 09:49 | ED.GENADULT ---
HPI - General Adult General Chief complaint: Urogenital-Female Stated complaint: Urinary Problems Source: patient Mode of arrival: ambulatory Limitations: no limitations History of Present Illness HPI narrative: Patient presents for evaluation of urinary symptoms for the last week. Symptoms include urinary urgency, hesitancy, frequency, dysuria. No fever, chills, nausea, vomiting, abdominal pain, low back pain, hematuria. She has had urinary tract infections in the past and her current symptoms are consistent with those experienced with UTI's in the past. she had a urine culture in December of this year that grew out coagulase-negative Staph that was susceptible to Macrobid and Bactrim but resistant to Cipro and Levaquin. She had a urine culture and January of this year that grew out Proteus which was susceptible to ceftazidime, cefepime, ceftriaxone and Cipro resistant to Bactrim, Macrobid, cefazolin. Related Data Home Medications Medication Instructions Recorded Confirmed multivitamin 1 tablet PO DAILY 07/14/22 09/05/23 omega [id number] oil 600 1 cap PO DAILY 07/16/22 09/05/23 mg-20 mg-500 mcg-800 mcg capsule gabapentin 300 mg capsule See Rx Instructions .Route .COMPLEX 11/18/22 09/05/23 Lactobacillus rhamnosus-Bifidobac. 1 cap PO DAILY 07/15/23 09/05/23 animalis 3 billion cell capsule ([employer]) Allergies Allergy/AdvReac Type Severity Reaction Status Date / Time No Known Allergies Allergy Verified 08/18/23 09:37 [facility] Past Medical History Medical History Abnormal mammogram Acquired hammertoe of right foot Actinic keratosis Arthritis of foot, degenerative Benign mole Chronic kidney disease, stage 3 (moderate) Colon cancer screening Crossover toe deformity of right foot Dysphagia Easy bruising Eczema Essential (primary) hypertension GERD (gastroesophageal reflux disease) Gout Hemoglobin A1c less than 7.0% 03/04/21 A1C = 6.4 History of cataract 2014 Hypertriglyceridemia Lumbar radicular pain Macular degeneration Melanoma Obstructive sleep apnea syndrome Osteoarthritis of carpometacarpal joint of right thumb Persistent headaches Personal history of malignant melanoma of skin Primary osteoarthritis of both hands Subcutaneous mass TMJ arthritis Trigger thumb of right hand Type 2 diabetes mellitus with hyperglycemia 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: 89 Family history of congestive heart failure, Onset Age: 89 Father Family history of malignant neoplasm, Onset Age: 60 Other Family history of arthritis Family history of cardiovascular disease Family history of gout Social History Social History Smoking packs per day: 0.5 Smoking cigarettes per day: 10.0 Years smoked: 10 Smoking pack-years: 5.00 Smoking status: Former smoker Tobacco type: cigarettes Second hand tobacco smoke exposure: No Smoking end date: 11/16/61 Alcohol intake: current Alcohol use details: STATES RARELY - MAYBE 3/YEAR Substance use: never Substance use type: does not use Lack of Transportation: No Lack of Food: Never True Current Housing: I Have Housing Con
== END 2023-09-05 09:50 | disposition home or self-care (01) ==
PROVIDERS: Emergency Provider Nurse Practitioner; PCP Family Medicine
DX: N39.0 Urinary tract infection, site not specified (principal); Z87.891 Personal history of nicotine dependence; I12.9 Hypertensive chronic kidney disease with stage 1 through stage 4 chronic kidney disease, or unspecified chronic kidney disease; E11.22 Type 2 diabetes mellitus with diabetic chronic kidney disease; N18.30 Chronic kidney disease, stage 3 unspecified; K21.9 Gastro-esophageal reflux disease without esophagitis; M10.9 Gout, unspecified; E78.1 Pure hyperglyceridemia; M18.11 Unilateral primary osteoarthritis of first carpometacarpal joint, right hand; M19.042 Primary osteoarthritis, left hand; M19.041 Primary osteoarthritis, right hand; E11.3593 Type 2 diabetes mellitus with proliferative diabetic retinopathy without macular edema, bilateral; Z85.820 Personal history of malignant melanoma of skin
CPT/HCPCS: 81003; 87086; 87088; 99213; G0463

== ENCOUNTER 2023-09-08 15:02 | Emergency (ER) | payer MEDICARE, SELFPAY ==
--- NOTE | ~2023-09-08 | XR_ITS ---
EXAMINATION: XR facial bones min 3V DATE: 09/08/2023 16:26 INDICATION: Right nose and forehead laceration. Fall. TECHNIQUE: 5 views of the facial bones were obtained. COMPARISON: None. FINDINGS: Bone alignment is normal. There are nondisplaced transverse fractures of the tips of the na dejan bones. No radiopaque foreign body. IMPRESSION: 1. Fractures of the nasal bones. Reviewed, dictated and finalized at location E.
--- NOTE | ~2023-09-08 | XR_ITS ---
EXAMINATION: XR nasal bones min 3V DATE: 09/08/2023 16:26 INDICATION: Laceration of right nose and forehead. Fall. TECHNIQUE: 3 views of the nasal bones were obtained. COMPARISON: None. FINDINGS: Bone alignment is normal. There are nondisplaced transverse fractures of the tips of the na dejan bones. IMPRESSION: 1. Fractures of the nasal bones. Reviewed, dictated and finalized at location E.
[2023-09-08 15:09] VITALS: BP 96/85; PULSE 87; RESP 16; TEMP 36.4; O2SAT 96
--- NOTE | 2023-09-08 16:04 | ED.FALL ---
HPI - Fall General Chief Complaint: Fall Stated Complaint: Bruised nose Time Seen by Provider: 09/08/23 16:04 Source: patient, RN notes reviewed and old records reviewed Mode of arrival: ambulatory Limitations: no limitations History of Present Illness HPI Narrative: 78 year old female accompanied by spouse with complaints of taking a fall while walking on concrete on the walking bike trail by herself today prior to arrival . Patient reports she thinks she slipped on a walnut or a rock and fell onto her right side hitting her forehead and her nose, right forearm, left thumb and onto bilateral knees.Patient has some abrasions to right forehead and nose with no active bleeding noted, small raised lump to the right forehead noted some bruising above righr eyebrow and to nose, denies any acute headache or any LOC at time of fall. Patient has abrasion to right forearm above wrist and to 2nd knuckle, bruising to her left thumb with full ROM noted, and abrasions to her bilateral knees. MD complaint: fall Fall from: standing Fall witnessed: yes, by bystander Place fall occurred: other (outside on walking trail) Loss of consciousness: none Symptoms prior to fall: none Severity scale (1-10): 3 Related Data Home Medications Medication Instructions Recorded Confirmed multivitamin 1 tablet PO DAILY 07/14/22 09/08/23 omega [id number] oil 600 1 cap PO DAILY 07/16/22 09/08/23 mg-20 mg-500 mcg-800 mcg capsule gabapentin 300 mg capsule See Rx Instructions .Route .COMPLEX 11/18/22 09/08/23 Lactobacillus rhamnosus-Bifidobac. 1 cap PO DAILY 07/15/23 09/08/23 animalis 3 billion cell capsule ([employer]) Allergies Allergy/AdvReac Type Severity Reaction Status Date / Time No Known Allergies Allergy Verified 09/08/23 15:18 Review of Systems Review of Systems: CONSTITUTIONAL: Denies fever, chills, or sweats. EYES: Denies visual changes, redness, or discharge. ENT: Denies rhinorrhea, congestion, sore throat, or otalgia.pain to nose CARDIOVASCULAR: Denies chest pain, palpitations, or edema. RESPIRATORY: Denies cough or dyspnea. GASTROINTESTINAL: Denies abdominal pain, nausea, vomiting, or diarrhea. GENITOURINARY: Denies dysuria or hematuria. SKIN: Denies rash or itching. abrasions to right forearm, 2nd right knuckle, forehead, nose knees MUSCULOSKELETAL: Denies back pain, joint pain, or myalgia., bruising above right eyebrow, nose, left thumb NEUROLOGIC: Denies headache, numbness, or weakness. PSYCHIATRIC: Denies anxiety or depression. All systems reviewed & are unremarkable except as noted in HPI and below PMFSH Past Medical History Medical History Abnormal mammogram Acquired hammertoe of right foot Actinic keratosis Arthritis of foot, degenerative Benign mole Chronic kidney disease, stage 3 (moderate) Colon cancer screening Crossover toe deformity of right foot Dysphagia Easy bruising Eczema Essential (primary) hypertension GERD (gastroesophageal reflux disease) Gout Hemoglobin A1c less than 7.0% 03/04/21 A1C = 6.4 History of cataract 2014 Hypertriglyceridemia Lumbar radicular pain Macular degeneration Melanoma Obstructive sleep apnea syndrome Osteoarthritis of carpometacarpal joint of right thumb Persistent headaches Personal history of malignant melanoma of skin Primary osteoarthritis of both hands Subcutaneous mass TMJ arthritis Trigger thumb of right hand Type 2 diabetes mellitus with hyperglycemia 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
== END 2023-09-08 17:11 | disposition home or self-care (01) ==
PROVIDERS: Emergency Provider Registered Nurse; PCP Family Medicine
DX: S02.2XXA Fracture of nasal bones, initial encounter for closed fracture (principal); W19.XXXA Unspecified fall, initial encounter; S00.83XA Contusion of other part of head, initial encounter; S60.012A Contusion of left thumb without damage to nail, initial encounter; Z87.891 Personal history of nicotine dependence; I12.9 Hypertensive chronic kidney disease with stage 1 through stage 4 chronic kidney disease, or unspecified chronic kidney disease; E11.22 Type 2 diabetes mellitus with diabetic chronic kidney disease; N18.30 Chronic kidney disease, stage 3 unspecified; K21.9 Gastro-esophageal reflux disease without esophagitis; M10.9 Gout, unspecified; E78.1 Pure hyperglyceridemia; E11.3593 Type 2 diabetes mellitus with proliferative diabetic retinopathy without macular edema, bilateral; Z85.820 Personal history of malignant melanoma of skin; H35.30 Unspecified macular degeneration; M18.11 Unilateral primary osteoarthritis of first carpometacarpal joint, right hand; M19.042 Primary osteoarthritis, left hand; M19.041 Primary osteoarthritis, right hand
CPT/HCPCS: 70150; 70160; 99213; G0463

== ENCOUNTER → 2023-09-11 13:52 | Outpatient (CLI) | payer MEDICARE, SELFPAY ==
--- NOTE | ~2023-09-11 | MM_ITS ---
EXAMINATION: MM screening mary BI w laron HISTORY: Screening mammogram TECHNIQUE: Craniocaudal and mediolateral oblique 3-D tomosynthesis images were obtained and synthetic 2-D images were generated. CAD analysis was submitted and interpreted. COMPARISON: 06/30/2022, 02/25/2021 bilateral screening mammogram examinations BREAST PARENCHYMAL COMPOSITION: There are scattered areas of fibroglandular density. FINDINGS: There is no evidence of suspicious mass, calcification, or architectural distortion to sugg est malignancy in either breast. There has been no suspicious interval change. IMPRESSION: 1. No mammographic evidence of malignancy. 2. Recommend routine screening mammography in one year. BI-RADS Category 1: Negative Reviewed, dictated and finalized at location A.
== END ==
PROVIDERS: PCP Family Medicine; Visit Provider Family Medicine
DX: Z12.31 Encounter for screening mammogram for malignant neoplasm of breast (principal)
CPT/HCPCS: 77063; 77067

== ENCOUNTER 2024-08-25 13:16 | Emergency (ER) | payer MEDICARE, SELFPAY ==
[2024-08-25 13:26] VITALS: BP 151/78; PULSE 94; RESP 18; TEMP 37.1; O2SAT 95
--- NOTE | 2024-08-25 13:36 | ED.ABDPAIN ---
HPI - Abdominal Pain General Chief Complaint: Urogenital-Female Stated Complaint: uti symptoms Time Seen by Provider: 08/25/24 13:52 Source: patient, RN notes reviewed and old records reviewed Mode of arrival: ambulatory Limitations: no limitations History of Present Illness HPI narrative: Patient presents with complaints of urinary frequency, burning, urgency. She reports that symptoms began yesterday, got Worse throughout the day yesterday. She denies any fever, chills, sweats. She denies any back pain. Denies any nausea or vomiting. She voices no other concerns or complaints at this time. She has not been taking anything for her symptoms. Related Data Home Medications Medication Instructions Recorded Confirmed multivitamin 1 tablet PO DAILY 07/14/22 08/25/24 omega [id number] oil 600 1 cap PO DAILY 07/16/22 08/25/24 mg-20 mg-500 mcg-800 mcg capsule Lactobacillus rhamnosus-Bifidobac. 1 cap PO DAILY 07/15/23 08/25/24 animalis 3 billion cell capsule ([employer]) prevagen BYMOUTH 10/26/23 08/17/24 Allergies Allergy/AdvReac Type Severity Reaction Status Date / Time No Known Allergies Allergy Verified 08/25/24 13:22 Review of Systems Review of Systems: All systems reviewed & are unremarkable except as noted in HPI and below Constitutional: Constitutional: Reports no additional constitutional complaints ENT: Reports system reviewed and no additional complaints, except as documented Cardiovascular: Cardiovascular: Reports no additional cardiovascular complaints Respiratory: Respiratory: Reports no additional respiratory complaints Gastrointestinal: Gastrointestinal: Reports no additional gastrointestinal complaints Genitourinary: Genitourinary: Reports as per HPI, Reports dysuria, Denies flank pain and Reports urinary urgency [facility] Past Medical History Medical History Abnormal mammogram Acquired hammertoe of right foot Actinic keratosis Arthritis of foot, degenerative Benign mole Chronic kidney disease, stage 3 (moderate) Colon cancer screening Crossover toe deformity of right foot Dysphagia Easy bruising Eczema Essential (primary) hypertension GERD (gastroesophageal reflux disease) Gout Hemoglobin A1c less than 7.0% 03/04/21 A1C = 6.4 History of cataract 2014 Hypertriglyceridemia Lumbar radicular pain Macular degeneration Melanoma Obstructive sleep apnea syndrome Osteoarthritis of carpometacarpal joint of right thumb Persistent headaches Personal history of malignant melanoma of skin Primary osteoarthritis of both hands Subcutaneous mass TMJ arthritis Trigger thumb of right hand Type 2 diabetes mellitus with hyperglycemia 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: 89 Family history of congestive heart failure, Onset Age: 89 Father Family history of malignant neoplasm, Onset Age: 60 Other Family history of arthritis Family history of cardiovascular disease Family history of gout Social History Social History Smoking packs per day: 0.5 Smoking cigarettes per day: 10.0 Years smoked: 10 Smoking pack-years: 5.00 Smoking status: Former smoker Tobacco type: cigare
[2024-08-25 13:53] LABS: EDUAAPPEAR Cloudy; EDUABILI Negative (Negative); EDUABLOOD 3+ (Negative); EDUACOLOR1 Yellow; EDUAGLUCOSE Negative (Negative); EDUAKETONE Negative (Negative); EDUALEUKO 1+ (Negative); EDUANITRATE Positive (Negative); EDUAPH 8.5; EDUAPROTEIN 3+ (Negative); EDUASPGRAVITY 1.025; EDUAUROBILI 0.2
== END 2024-08-25 14:04 | disposition home or self-care (01) ==
PROVIDERS: Emergency Provider Nurse Practitioner Family; PCP Family Medicine
DX: N39.0 Urinary tract infection, site not specified (principal); B96.4 Proteus (mirabilis) (morganii) as the cause of diseases classified elsewhere; I12.9 Hypertensive chronic kidney disease with stage 1 through stage 4 chronic kidney disease, or unspecified chronic kidney disease; E11.22 Type 2 diabetes mellitus with diabetic chronic kidney disease; N18.30 Chronic kidney disease, stage 3 unspecified; K21.9 Gastro-esophageal reflux disease without esophagitis; E78.1 Pure hyperglyceridemia; H35.30 Unspecified macular degeneration; E11.3593 Type 2 diabetes mellitus with proliferative diabetic retinopathy without macular edema, bilateral; Z85.820 Personal history of malignant melanoma of skin; M10.9 Gout, unspecified
CPT/HCPCS: 81003; 87077; 87086; 87186; 99213; G0463

== ENCOUNTER 2024-11-19 11:17 | Outpatient (CLI) | payer MEDICARE, SELFPAY ==
--- NOTE | ~2024-11-19 | MM_ITS ---
EXAMINATION: MM screening mary BI w laron HISTORY: Screening mammogram TECHNIQUE: Craniocaudal and mediolateral oblique 3-D tomosynthesis images were obtained and synthetic 2-D images were generated. CAD analysis was submitted and interpreted. COMPARISON: 09/11/2023, 06/30/2022 bilateral screening mammogram examinations BREAST PARENCHYMAL COMPOSITION: There are scattered areas of fibroglandular density. No FINDINGS: There is no evidence of suspicious mass, calcification, or architectural distortion to sugg est malignancy in either breast. There has been no suspicious interval change. IMPRESSION: 1. No mammographic evidence of malignancy. 2. Recommend routine screening mammography in one year. BI-RADS Category 1: Negative Reviewed, dictated and finalized at location A. ROOM COORDINATOR
== END 2024-11-19 11:18 | disposition home or self-care (01) ==
LOC: MICIMG 11:20
PROVIDERS: PCP Family Medicine; Visit Provider Family Medicine
DX: Z12.31 Encounter for screening mammogram for malignant neoplasm of breast (principal)
CPT/HCPCS: 77063; 77067

== ENCOUNTER 2025-05-08 11:19 | Emergency (ER) | payer MEDICARE, SELFPAY ==
--- NOTE | 2025-05-08 12:33 | PC.NURSE ---
1120- pt was finishing registration, and turned around to see ems stretcher rolling in, and pt decided that she was not going to be seen and would possibly come back later - left without triage, or being seen per provider.
== END 2025-05-08 12:33 | disposition left against medical advice (07) ==
PROVIDERS: Emergency Provider Nurse Practitioner
DX: Z53.21 Procedure and treatment not carried out due to patient leaving prior to being seen by health care provider (principal)
CPT/HCPCS: 99199

== ENCOUNTER 2025-06-13 18:06 | Emergency (ER) | payer MEDICARE, SELFPAY ==
--- NOTE | 2025-06-13 18:09 | ED.EYEPROB ---
HPI - Eye Problem General Chief complaint: Eye Problems Stated complaint: Swollen eyes Time Seen by Provider: 06/13/25 18:19 Source: patient and RN notes reviewed Mode of arrival: ambulatory Limitations: no limitations History of Present Illness HPI Narrative: 79 year old female presents with concern of for swelling under both eyes. She denies itching, pain, vision changes. Reports she noticed it when she looked in the mirror. She reports she has used a new astringent last night and this morning. She denies any swollen lips, swollen tongue, trouble breathing. She denies any rash. She reports that she pulled a tick off of her neck on Thursday. She denies any other rash. She denies joint pain, fever, body aches. MD chief complaint: other (eye swelling) Related Data Home Medications ?Medication ?Instructions ?Recorded ?Confirmed ?Last Taken ?Type multivitamin 1 tablet PO DAILY 07/14/22 03/08/25 Unknown History Lactobacillus rhamnosus-Bifidobac. 1 cap PO DAILY 07/15/23 03/08/25 Unknown History animalis 3 billion cell capsule ([employer]) prevagen BYMOUTH 10/26/23 03/08/25 Unknown History Allergies Allergy/AdvReac Type Severity Reaction Status Date / Time Empaglifozin AdvReac Severe UTI Uncoded 06/13/25 18:09 Review of Systems Review of Systems: CONSTITUTIONAL: Denies malaise, chills, sweats, or fever. EYES: Denies visual changes. Denies irritation, discharge. Reports swelling under both eyes ENT: Denies rhinorrhea, congestion, sinus pain, otalgia or sore throat. SKIN: Denies rash or itching. NEUROLOGIC: Denies numbness, weakness, or headache. PSYCHIATRIC: Denies anxiety or depression. All systems reviewed & are unremarkable except as noted in HPI and below PMFSH Past Medical History Medical History Essential (primary) hypertension Lumbar radicular pain Colon cancer screening Dysphagia GERD (gastroesophageal reflux disease) Macular degeneration Gout Personal history of malignant melanoma of skin Subcutaneous mass Easy bruising Benign mole Trigger thumb of right hand Osteoarthritis of carpometacarpal joint of right thumb Hemoglobin A1c less than 7.0% 03/04/21 A1C = 6.4 Actinic keratosis Eczema Melanoma History of cataract 2015 Arthritis of foot, degenerative Abnormal mammogram Acquired hammertoe of right foot Chronic kidney disease, stage 3 (moderate) Crossover toe deformity of right foot Hypertriglyceridemia Obstructive sleep apnea syndrome Persistent headaches Primary osteoarthritis of both hands TMJ arthritis Type 2 diabetes mellitus with hyperglycemia 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 Surgical History Surgical History History of bladder surgery Tie up March 2023 History of melanoma excision 2018 History of hysterectomy 2009 Family History Family History Grandparent Depression, Onset Age: 91 Hypertension, Onset Age: 93 Acute myocardial infarction, Onset Age: 61 Cerebrovascular accident, Onset Age: 93 Family history of malignant neoplasm, Onset Age: 60 Sibling Acute myocardial infarction Mother Cerebrovascular accident, Onset Age: 89 Family history of congestive heart failure, Onset Age: 89 Father Family history of malignant neoplasm, Onset Age: 60 Other Family history of arthritis Family history of cardiovascular disease Family history of gout Social History Social History Smoking packs per day: 0.5 Smoking cigarettes per day: 10.0 Years smoked: 10 Smoking pack-years: 5.00 Smoking status: Former smoker Tobacco type: cigarettes Second hand tobacco smoke exposure: No Smoking end date: 11/16/61 Alcohol intake: current Alcohol use details: STATES RARELY - MAYBE 3/YEAR Substance use: never Substance use type: does not use Do You Feel Safe in your Home?: Yes Lack of Transportation: No Lack of Food: Never True Current Housing: I Have Housing Concerned About Future Housing: No Difficulty Paying Gas/Electric Bills: No Difficulty Paying for Meds: No Currently Unemployed: No Education: High School Diploma/GED Difficulty w/ Childcare or Family Care: No Living arrangements: with family Occupation/Education: retired Gender identity (if verbalized by the patient): Female Spiritual care concerns: No Comments At time of signature, agree with nursing past medical, surgical, social and family history. There is no relevant family history pertinent to the presenting complaint Exam Narrative: GENERAL: Well-appearing, well-nourished, and in no acute distress. HEAD: Normocephalic, atraumatic. EYES: PERRLA and EOMI. No nystagmus. Bilateral sclera conjunctivae clear. Upper eyelid unremarkable, no periorbital edema noted. Soft superficial edema noted below both eyes without induration, warmth, tenderness ENT: Nares clear, turbinates pink, no rhinorrhea or epistaxis. Mucous membranes moist. TM pearly ho with sharp light reflex bilaterally; no tragal tenderness. NECK: Supple. CHEST: No respiratory distress. Speaks in full sentences. HEART: Regular rate and rhythm. SKIN: Warm, dry, no visible rash. NEURO: Alert and oriented x3. PSYCH: Normal mood and affect Course Course Emergency Course: Post exposure prophylaxis given for take bite. Patient treated for likely allergic reaction to skin care product. Patient is aware of diagnosis, understands and agrees to treatment plan. Anticipatory guidance given. Patient agrees to follow-up as directed and is aware of reasons to seek care at the emergency department. Portions of this record may have been created with voice recognition software Level of Care: Express Care Visit Vital Signs Vital signs: Reviewed. MDM - Eye Problem MDM Narrative Medical decision making narrative: Consideration of the following conditions may be warranted for the presenting problem, they are not final diagnoses: Bacterial conjunctivitis, allergic conjunctivitis, viral conjunctivitis, foreign body, blepharitis, chalazion, hordeolum, corneal abrasion, preseptal cellulitis, orbital cellulitis. No evidence of proptosis, ophthalmoplegia, vision loss, pain with eye movement. Exam findings show no acute concerns or changes; patient is non-toxic appearing and is in no distress. Patient is appropriate for outpatient treatment and follow-up. Critical Care Time Critical Care Time Critical Care Time: No Discharge Plan Discharge Clinical Impression: Allergic reaction, Tick bite Patient Disposition: Home Condition: Stable Instructions: Antibiotic Form, Tick Bite (ED), General Allergic Reaction (ED) Additional Instructions: Eye swelling: Antihistamines are the best treatment for your allergic reaction. You may take 1 tab of Benadryl (diphenhydramine) every 6 hours - this medicine may make you tired, so know how it affects you before you drive, work, make important decisions. You may also take a non-drowsy antihistamine such as Zyrtec or Yakelin once daily. Medications that block stomach acid, such as Pepcid, also block histamine and can be helpful; take this once daily. If you have difficulty breathing, wheezing, swollen lips, swollen tongue, nausea, vomiting, diarrhea, pass out, have fever, itchy tongue, give difficulty swallowing please call 911 or go to the emergency room. Tick bite: Take antibiotic as directed. Follow-up with your primary care to doctor. Patient Language: Austrian Prescriptions: New doxycycline monohydrate 100 mg tablet 200 mg PO ONCE 1 Days Qty: 2 0RF No Action multivitamin Tablet 1 tablet PO DAILY (DME) Accu-Chek Valeria Plus test strp Strip See Rx Instructions .ROUTE .MEDSUPPLY Qty: 100 4RF Rx Instructions: Use 1 test strip to check glucose daily [employer] 3 billion cell capsule 1 cap PO DAILY rosuvastatin 10 mg tablet See Rx Instructions .ROUTE .COMPLEX Qty: 90 1RF Dose Instruction: Take 1 tablet by mouth once daily Rx Instructions: Take 1 tablet by mouth once daily glimepiride 4 mg tablet 4 mg PO BID 90 Days Qty: 180 1RF (DME) FreeStyle Duy 2 Sensor Kit See Rx Instructions .ROUTE .MEDSUPPLY Qty: 6 2RF Rx Instructions: As directed prevagen BYMOUTH omeprazole 40 mg capsule,delayed release(DR/EC) 40 mg PO DAILY Qty: 90 3RF (DME) OneTouch Verio test strips Strip See Rx Instructions .Route Qty: 100 0RF Rx Instructions: check BS once daily (DME) blood-glucose meter [OneTouch Verio Flex meter] Misc See Rx Instructions .Route Qty: 1 0RF Rx Instructions: As directed (DME) lancets [OneTouch Delica Plus Lancet] 33 gauge misc See Rx Instructions .Route Qty: 100 0RF Rx Instructions: check BS once daily icosapent ethyl 1 gram capsule 2 g PO BID Qty: 360 1RF diltiazem HCl 120 mg capsule,extended release 24hr 120 mg PO DAILY Qty: 90 3RF gabapentin 300 mg capsule 300 mg PO BID Qty: 270 1RF Rx Instructions: Take 1 tablet @1200 and 2 tablets HS hydrochlorothiazide 25 mg tablet 25 mg PO DAILY Qty: 90 1RF lisinopril 10 mg tablet 10 mg PO DAILY Qty: 90 1RF semaglutide 2 mg/dose (8 mg/3 mL) pen injector 2 mg subcut WEEKLY 90 Days Qty: 9 1RF Follow-up/Referrals: Bar Person, [Primary Care Provider] - Time of Disposition: 18:28
[2025-06-13 18:14] VITALS: BP 122/72; PULSE 85; RESP 16; TEMP 36.6; O2SAT 98
== END 2025-06-13 18:30 | disposition home or self-care (01) ==
PROVIDERS: Emergency Provider Nurse Practitioner; PCP Internal Medicine
DX: S10.96XA Insect bite of unspecified part of neck, initial encounter (principal); T78.49XA Other allergy, initial encounter; I10 Essential (primary) hypertension; E11.9 Type 2 diabetes mellitus without complications; Z87.891 Personal history of nicotine dependence; W57.XXXA Bitten or stung by nonvenomous insect and other nonvenomous arthropods, initial encounter
CPT/HCPCS: 99213; G0463

== ENCOUNTER 2025-06-29 09:40 | Emergency (ER) | payer MEDICARE, SELFPAY ==
[2025-06-29 09:53] VITALS: BP 154/75; PULSE 93; RESP 16; TEMP 36.6; O2SAT 98
[2025-06-29 10:13] LABS: EDUAAPPEAR Clear; EDUABILI Negative (Negative); EDUABLOOD Trace (Negative); EDUACOLOR1 Yellow; EDUAGLUCOSE Negative (Negative); EDUAKETONE Negative (Negative); EDUALEUKO Negative (Negative); EDUANITRATE Negative (Negative); EDUAPH 5.5; EDUAPROTEIN 1+ (Negative); EDUASPGRAVITY 1.020; EDUAUROBILI 0.2
--- NOTE | 2025-06-29 10:36 | ED_ITS ---
HPI - Female Genitourinary General Chief complaint: Urogenital-Female Stated complaint: UTI SYMPTOMS Time Seen by Provider: 06/29/25 10:00 Source: patient and RN notes reviewed Mode of arrival: ambulatory Limitations: no limitations History of Present Illness HPI Narrative: 79-year-old female presents Express Care complaining of urinary symptoms for 14 days. Patient reports having increased urinary frequency. Patient denies any fevers, dysuria, hesitancy abdominal pain, body aches, chills, nausea, vomiting, diarrhea, blood in her urine. Patient has not taken anything [id number] for symptoms. Patient denies any history of an overactive bladder. Patient has a history urinary tract infections. Related Data Home Medications ?Medication ?Instructions ?Recorded ?Confirmed ?Last Taken ?Type multivitamin 1 tablet PO DAILY 07/14/22 06/29/25 Unknown History Lactobacillus rhamnosus-Bifidobac. 1 cap PO DAILY 07/15/23 06/29/25 Unknown History animalis 3 billion cell capsule ([employer]) prevagen BYMOUTH 10/26/23 06/20/25 Unknown History Allergies Allergy/AdvReac Type Severity Reaction Status Date / Time Empaglifozin AdvReac Severe UTI Uncoded 06/20/25 11:10 Review of Systems Review of Systems: CONSTITUTIONAL: Denies fever, chills, body aches, or sweats. EYES: Denies visual changes, redness, or discharge. ENT: Denies rhinorrhea, congestion, sore throat, or otalgia. CARDIOVASCULAR: Denies chest pain, palpitations, or edema. RESPIRATORY: Denies cough or dyspnea. GASTROINTESTINAL: Denies abdominal pain, nausea, vomiting, or diarrhea. GENITOURINARY: Positive for urinary frequency. Negative for hematuria, dysuria, hesitancy. SKIN: Denies rash or itching. MUSCULOSKELETAL: Denies back pain, joint pain, or myalgia. NEUROLOGIC: Denies headache, numbness, or weakness. PSYCHIATRIC: Denies anxiety or depression. All other systems reviewed are negative, except as documented in HPI. [facility] Past Medical History Medical History Essential (primary) hypertension Lumbar radicular pain Colon cancer screening Dysphagia GERD (gastroesophageal reflux disease) Macular degeneration Gout Personal history of malignant melanoma of skin Subcutaneous mass Easy bruising Benign mole Trigger thumb of right hand Osteoarthritis of carpometacarpal joint of right thumb Hemoglobin A1c less than 7.0% 03/04/21 A1C = 6.4 Actinic keratosis Eczema Melanoma History of cataract 2014 Arthritis of foot, degenerative Abnormal mammogram Acquired hammertoe of right foot Chronic kidney disease, stage 3 (moderate) Crossover toe deformity of right foot Hypertriglyceridemia Obstructive sleep apnea syndrome Persistent headaches Primary osteoarthritis of both hands TMJ arthritis Type 2 diabetes mellitus with hyperglycemia 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 Surgical History Surgical History History of bladder surgery Tie up March 2023 History of melanoma excision 2018 History of hysterectomy 2009 Family History Family History Grandparent Depression, Onset Age: 91 Hypertension, Onset Age: 93 Acute myocardial infarction, Onset Age: 61 Cerebrovascular accident, Onset Age: 93 Family history of malignant neoplasm, Onset Age: 60 Sibling Acute myocardial infarction Mother Cerebrovascular accident, Onset Age: 89 Family history of congestive heart failure, Onset Age: 89 Father Family history of malignant neoplasm, Onset Age: 60 Other Family history of arthritis Family history of cardiovascular disease Family history of gout Social History Social History Smoking packs per day: 0.5 Smoking cigarettes per day: 10.0 Years smoked: 10 Smoking pack-years: 5.00 Smoking status: Former smoker Tobacco type: cigarettes Second hand tobacco smoke exposure: No Smoking end date: 11/16/61 Alcohol intake: current Alcohol use details: STATES RARELY - MAYBE 3/YEAR Substance use: never Substance use type: does not use Do You Feel Safe in your Home?: Yes Lack of Transportation: No Lack of Food: Never True Current Housing: I Have Housing Concerned About Future Housing: No Difficulty Paying Gas/Electric Bills: No Difficulty Paying for Meds: No Currently Unemployed: No Education: High School Diploma/GED Difficulty w/ Childcare or Family Care: No Living arrangements: with family Occupation/Education: retired Gender identity (if verbalized by the patient): Female Spiritual care concerns: No Comments At the time of my signature, I reviewed and agree with the nursing past medical, surgical, social, and family history. There is no relevant family history pertinent to the patient complaint. Exam Narrative: GENERAL: This is a well-nourished, well-developed adult, in no apparent distress. They are non ill-appearing, nontoxic appearing. HEAD: normocephalic, atraumatic. EYES: Sclera clear/white. Vision is grossly intact. Conjunctiva normal bilaterally. Extraocular movements intact. EARS: External ears normal,Hearing grossly intact. NOSE: External nose normal THROAT: Mucous membranes moist NECK: Normal range of motion CARDIOVASCULAR: Regular rate and rhythm. Normal S1-S2. No clicks, gallops, rubs, murmurs. RESPIRATORY: Respiratory rate normal, respiratory effort nonlabored, no respiratory distress. Lung sounds clear to auscultation throughout. Lung sounds equal bilaterally. No adventitious lung sounds. GASTROINTESTINAL: Abdomen soft, flat, non-tender, nondistended. Bowel sounds are active. No hepato-splenomegaly, or palpable masses. No guarding. No rebound tenderness. SKIN: warm, Dry, intact with no suspicious lesions or rash, good texture and turgor. NEURO: awake, alert, and oriented to person, place and time. There were no obvious focal neurologic abnormalities. EXTREMITIES: No joint tenderness, effusion, or edema noted. BACK: Nontender without deformity. No CVA tenderness. Course Course Emergency Course: Portions of this record may have been created with voice recognition software Level of Care: Express Care Visit Vital Signs Vital signs: Vital Signs Temperature 98 F 06/29/25 09:53 Pulse Rate 93 06/29/25 09:53 Respiratory Rate 16 06/29/25 09:53 Blood Pressure 154/75 H 06/29/25 09:53 Pulse Oximetry 98 06/29/25 09:53 Temperature 98 F 06/29/25 09:53 Pulse Rate 93 06/29/25 09:53 Respiratory Rate 16 06/29/25 09:53 Blood Pressure 154/75 H 06/29/25 09:53 Pulse Oximetry 98 06/29/25 09:53 MDM - Female Genitourinary MDM Narrative Medical decision making narrative: Urine dipstick shows evidence of small amount blood, protein, and 1+ glucose. Urine culture pending. Symptoms are not consistent with urinary tract infection. Through shared decision making the patient she has elected to wait for urine culture results prior to any antibiotic use. Patient may have an overactive bladder. Discussed physical exam findings. Advised supportive measures and signs/symptoms to go to the ER. Pt is appropriate for outpt treatment and f/u. Differential Diagnosis Differential diagnosis: Likely urinary tract infection, cystitis and other (Overactive bladder, urinary frequency) Lab Data Attestation: I reviewed the patient's lab results. Labs: Lab Results 06/29/25 Range/Units 10:02 POC Urine Color Yellow POC Urine Clarity Clear POC Urine pH 5.5 POC Ur Specif [place] 1.020 POC Urine Protein 1+ (Negative) POC Ur Glucose (UA) Negative (Negative) POC Urine Ketones Negative (Negative) POC Urine Blood Trace (Negative) POC Urine Nitrite Negative (Negative) POC Urine Bilirubin Negative (Negative) POC Urine Urobilinogen 0.2 POC U Leukocyte Esteras Negative (Negative) Discharge Plan Discharge Clinical Impression: Increased urinary frequency Patient Disposition: Home Condition: Stable Instructions: Urinary Urgency and Frequency (DC) Additional Instructions: Your urine will be sent of for a culture to determine if bacteria is causing your symptoms. If the culture shows a UTI, you will be notified and an antibiotic will be called in for you. you will need to follow up with your PCP 3-5 days. Go to the ER for any worsening symptoms, abdominal pain, fevers, dysuria, nausea, vomiting, or any other concerns Patient Language: Turkish Prescriptions: No Action multivitamin Tablet 1 tablet PO DAILY (DME) Accu-Chek Valeria Plus test strp Strip See Rx Instructions .ROUTE .MEDSUPPLY Qty: 100 4RF Rx Instructions: Use 1 test strip to check glucose daily [employer] 3 billion cell capsule 1 cap PO DAILY (DME) FreeStyle Duy 2 Sensor Kit See Rx Instructions .ROUTE .MEDSUPPLY Qty: 6 2RF Rx Instructions: As directed prevagen BYMOUTH omeprazole 40 mg capsule,delayed release(DR/EC) 40 mg PO DAILY Qty: 90 3RF glimepiride 4 mg tablet 4 mg PO BID 90 Days Qty: 180 1RF (DME) OneTouch Verio test strips Strip See Rx Instructions .Route Qty: 100 0RF Rx Instructions: check BS once daily (DME) blood-glucose meter [OneTouch Verio Flex meter] Misc See Rx Instructions .Route Qty: 1 0RF Rx Instructions: As directed (DME) lancets [OneTouch Delica Plus Lancet] 33 gauge misc See Rx Instructions .Route Qty: 100 0RF Rx Instructions: check BS once daily diltiazem HCl 120 mg capsule,extended release 24hr 120 mg PO DAILY Qty: 90 3RF gabapentin 300 mg capsule 300 mg PO BID Qty: 270 1RF Rx Instructions: Take 1 tablet @1200 and 2 tablets HS hydrochlorothiazide 25 mg tablet 25 mg PO DAILY Qty: 90 1RF lisinopril 10 mg tablet 10 mg PO DAILY Qty: 90 1RF semaglutide 2 mg/dose (8 mg/3 mL) pen injector 2 mg subcut WEEKLY 90 Days Qty: 9 1RF rosuvastatin 10 mg tablet See Rx Instructions .ROUTE .COMPLEX Qty: 90 1RF Dose Instruction: Take 1 tablet by mouth once daily Rx Instructions: Take 1 tablet by mouth once daily Follow-up/Referrals: Elissa Mcwilliams [employer] [Primary Care Provider] - Time of Disposition: 10:24
== END 2025-06-29 10:33 | disposition home or self-care (01) ==
PROVIDERS: PCP Nurse Practitioner
DX: R35.0 Frequency of micturition (principal); Z87.891 Personal history of nicotine dependence; I12.9 Hypertensive chronic kidney disease with stage 1 through stage 4 chronic kidney disease, or unspecified chronic kidney disease; E11.22 Type 2 diabetes mellitus with diabetic chronic kidney disease; N18.30 Chronic kidney disease, stage 3 unspecified; Z79.84 Long term (current) use of oral hypoglycemic drugs; K21.9 Gastro-esophageal reflux disease without esophagitis; H35.30 Unspecified macular degeneration; M10.9 Gout, unspecified; E78.1 Pure hyperglyceridemia; E11.3593 Type 2 diabetes mellitus with proliferative diabetic retinopathy without macular edema, bilateral; M18.11 Unilateral primary osteoarthritis of first carpometacarpal joint, right hand; M19.042 Primary osteoarthritis, left hand; M19.041 Primary osteoarthritis, right hand; Z85.820 Personal history of malignant melanoma of skin
CPT/HCPCS: 81003; 87086; 99213; G0463

== ENCOUNTER 2025-07-21 13:33 | Emergency (ER) | payer MEDICARE, SELFPAY ==
--- NOTE | 2025-07-21 13:34 | ED_ITS ---
HPI - Skin/Abscess/Foreign Bdy General Chief complaint: Skin/Abscess/Foreign Body Stated complaint: wasp sting Time Seen by Provider: 07/21/25 13:40 Source: patient, RN notes reviewed and old records reviewed Mode of arrival: ambulatory Limitations: no limitations History of Present Illness HPI narrative: 80-year-old female presents to the [facility] with concerns for wasp sting to the dorsal aspect left hand and posterior right forearm. Bruising noted to the dorsal left hand without swelling, drainage. No increased warmth. No areas noted to the right forearm. States that she got stung on Thursday Applies baking soda to the area. States that she does take Zyrtec daily Related Data Home Medications ?Medication ?Instructions ?Recorded ?Confirmed ?Last Taken ?Type multivitamin 1 tablet PO DAILY 07/14/22 0 06/29/25 Unknown History Lactobacillus rhamnosus-Bifidobac. 1 cap PO DAILY 06/1806/29/25 Unknown History animalis 3 billion cell capsule ([employer]) prevagen BYMOUTH 10/26/23 06/20/25 Un known History Allergies Allergy/AdvReac Type Severity Reaction Status Date / Time Empaglifozin AdvReac Severe UTI Uncoded 07/21/25 13:48 Review of Systems Review of Systems: All systems reviewed & are unremarkable except as noted in HPI and below Constitutional: Constitutional: Reports no additional constitutional complaints ENT: Reports system reviewed and no additional complaints, except as documented Cardiovascular: Cardiovascular: Reports no additional cardiovascular complaints, Denies chest pain and Denies dyspnea Respiratory: Respiratory: Reports no additional respiratory complaints, Denies chest congestion, Denies cough and Denies dyspnea Musculoskeletal: Musculoskeletal: Reports no additional musculoskeletal complaints Integumentary/Breasts: Skin/Breast: Reports as per HPI [facility] Past Medical History Medical History Essential (primary) hypertension Lumbar radicular pain Colon cancer screening Dysphagia GERD (gastroesophageal reflux disease) Macular degeneration Gout Personal history of malignant melanoma of skin Subcutaneous mass Easy bruising Benign mole Trigger thumb of right hand Osteoarthritis of carpometacarpal joint of right thumb Hemoglobin A1c less than 7.0% 03/04/21 A1C = 6.4 Actinic keratosis Eczema Melanoma History of cataract 2015 Arthritis of foot, degenerative Abnormal mammogram Acquired hammertoe of right foot Chronic kidney disease, stage 3 (moderate) Crossover toe deformity of right foot Hypertriglyceridemia Obstructive sleep apnea syndrome Persistent headaches Primary osteoarthritis of both hands TMJ arthritis Type 2 diabetes mellitus with hyperglycemia 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 Surgical History Surgical History History of bladder surgery Tie up March 2023 History of melanoma excision 2018 History of hysterectomy 2009 Family History Family History Grandparent Depression, Onset Age: 91 Hypertension, Onset Age: 93 Acute myocardial infarction, Onset Age: 61 Cerebrovascular accident, Onset Age: 93 Family history of malignant neoplasm, Onset Age: 60 Sibling Acute myocardial infarction Mother Cerebrovascular accident, Onset Age: 89 Family history of congestive heart failure, Onset Age: 89 Father Family history of malignant neoplasm, Onset Age: 60 Other Family history of arthritis Family history of cardiovascular disease Family history of gout Social History Social History Smoking packs per day: 0.5 Smoking cigarettes per day: 10.0 Years smoked: 10 Smoking pack-years: 5.00 Smoking status: Former smoker Tobacco type: cigarettes Second hand tobacco smoke exposure: No Smoking end date: 11/16/61 Alcohol intake: current Alcohol use details: STATES RARELY - MAYBE 3/YEAR Substance use: never Substance use type: does not use Do You Feel Safe in your Home?: Yes Lack of Transportation: No Lack of Food: Never True Current Housing: I Have Housing Concerned About Future Housing: No Difficulty Paying Gas/Electric Bills: No Difficulty Paying for Meds: No Currently Unemployed: No Education: High School Diploma/GED Difficulty w/ Childcare or Family Care: No Living arrangements: with family Occupation/Education: retired Gender identity (if verbalized by the patient): Female Spiritual care concerns: No Comments At the time of my signature, I reviewed and agree with the nursing past medical, surgical, social, and family history. There is no relevant family history pertinent to the patient complaint. Exam Const: General: cooperative, comfortable, no acute distress, well developed, alert, ill appearing chronically and well nourished Nutritional Appearance: well nourished Orientation/consciousness: patient oriented x3 Limitations: no limitations HENMT: Head: normal to inspection Eyes: General: appearance normal, both eyes and all related structures Alignment and Position: alignment normal Neck: Neck: normal visual inspection, full ROM, no lymphadenopathy and no meningeal signs Chest: Chest palpation & inspection: normal inspection of the chest Resp: Effort & Inspection: normal respiratory effort and able to speak in complete sentences Cardio: Rate: regular rate Skin: General skin exam: normal color and no rashes or lesions noted Other: Patient denies any concerns for the right forearm, concern that the left hand still bothers her, is still bruised. Neuro: General: patient oriented x3, gait normal, moves all extremities and no meningeal signs Cognition (Neuro): normal cognition Speech: normal speech Gait exam (Neuro): Normal gait present Extrem: General: normal to inspection, full ROM, capillary refill normal and normal gait Psych: Appearance: grossly normal and well kempt Mental Status: mental status grossly normal Speech and movement: Normal speech and movement present and Clear speech present Affect: normal affect Attitude: cooperative Course Course Level of Care: Express Care Visit Vital Signs Vital signs: Vital Signs Temperature 97.9 F 07/21/25 13:40 Pulse Rate 84 07/21/25 13:40 Respiratory Rate 16 07/21/25 13:40 Blood Pressure 140/76 07/21/25 13:40 Pulse Oximetry 97 07/21/25 13:40 Oxygen Delivery Room Air 07/21/25 13:40 Temperature 97.9 F 07/21/25 13:40 Pulse Rate 84 07/21/25 13:40 Respiratory Rate 16 07/21/25 13:40 Blood Pressure 140/76 07/21/25 13:40 Pulse Oximetry 97 07/21/25 13:40 Oxygen Delivery Room Air 07/21/25 13:40 Reviewed MDM - Skin/Abscess/Foreign Bdy MDM Narrative Medical decision making narrative: Patient 3 day post wasps sting. No abnormalities noted to the right forearm. Slight bruising without increased warmth, drainage, swelling to the left hand and dorsal. Discussed [id number] treatments with patient. Patient is appropriate for outpatient treatment with close follow-up Differential Diagnosis Differential diagnosis: Likely abscess of skin or subcutaneous tissue, viral exanthem, urticaria, allergic reaction to drug, cellulitis, eczema, insect bites, impetigo and contact dermatitis Critical Care Time Critical Care Time Critical Care Time: No Discharge Plan Discharge Clinical Impression: Accidental insect sting Patient Disposition: Home Condition: Stable Instructions: Insect Bite or Sting (ED) Additional Instructions: The most important part of your care is follow up with Primary care provider. Take Zyrtec every day Take Pepcid 20mg daily for 7 days Use the cream twice a day after washing it with warm soapy water and patting dry Avoid hot showers, Take cool showers. Hot showers will make rashes worse Apply cool compresses every 2-3 hours for 15 minutes Go to the ER for new or worsening symptoms such as shortness of breath. Patient Language: [place]se Prescriptions: New triamcinolone acetonide 0.025 % cream 1 applic topical TID Qty: 15 0RF No Action multivitamin Tablet 1 tablet PO DAILY (DME) Accu-Chek Valeria Plus test strp Strip See Rx Instructions .ROUTE .MEDSUPPLY Qty: 100 4RF Rx Instructions: Use 1 test strip to check glucose daily [employer] 3 billion cell capsule 1 cap PO DAILY (DME) FreeStyle Duy 2 Sensor Kit See Rx Instructions .ROUTE .MEDSUPPLY Qty: 6 2RF Rx Instructions: As directed prevagen BYMOUTH omeprazole 40 mg capsule,delayed release(DR/EC) 40 mg PO DAILY Qty: 90 3RF glimepiride 4 mg tablet 4 mg PO BID 90 Days Qty: 180 1RF (DME) OneTouch Verio test strips Strip See Rx Instructions .Route Qty: 100 0RF Rx Instructions: check BS once daily (DME) blood-glucose meter [OneTouch Verio Flex meter] Misc See Rx Instructions .Route Qty: 1 0RF Rx Instructions: As directed (DME) lancets [OneTouch Delica Plus Lancet] 33 gauge misc See Rx Instructions .Route Qty: 100 0RF Rx Instructions: check BS once daily diltiazem HCl 120 mg capsule,extended release 24hr 120 mg PO DAILY Qty: 90 3RF gabapentin 300 mg capsule 300 mg PO BID Qty: 270 1RF Rx Instructions: Take 1 tablet @1200 and 2 tablets HS hydrochlorothiazide 25 mg tablet 25 mg PO DAILY Qty: 90 1RF lisinopril 10 mg tablet 10 mg PO DAILY Qty: 90 1RF semaglutide 2 mg/dose (8 mg/3 mL) pen injector 2 mg subcut WEEKLY 90 Days Qty: 9 1RF rosuvastatin 10 mg tablet See Rx Instructions .ROUTE .COMPLEX Qty: 90 1RF Dose Instruction: Take 1 tablet by mouth once daily Rx Instructions: Take 1 tablet by mouth once daily Follow-up/Referrals: Bar Person DO [Primary Care Provider, Internal Medicine] - 2 Weeks Time of Disposition: 13:49
[2025-07-21 13:40] VITALS: BP 140/76; PULSE 84; RESP 16; TEMP 36.6; O2SAT 97
== END 2025-07-21 13:50 | disposition home or self-care (01) ==
PROVIDERS: Emergency Provider Nurse Practitioner; PCP Internal Medicine
DX: T63.461A Toxic effect of venom of wasps, accidental (unintentional), initial encounter (principal); I12.9 Hypertensive chronic kidney disease with stage 1 through stage 4 chronic kidney disease, or unspecified chronic kidney disease; E11.22 Type 2 diabetes mellitus with diabetic chronic kidney disease; N18.30 Chronic kidney disease, stage 3 unspecified; Z79.84 Long term (current) use of oral hypoglycemic drugs; K21.9 Gastro-esophageal reflux disease without esophagitis; H35.30 Unspecified macular degeneration; M10.9 Gout, unspecified; E78.1 Pure hyperglyceridemia; M18.11 Unilateral primary osteoarthritis of first carpometacarpal joint, right hand; M19.042 Primary osteoarthritis, left hand; M19.041 Primary osteoarthritis, right hand; Z85.820 Personal history of malignant melanoma of skin; Z87.891 Personal history of nicotine dependence
CPT/HCPCS: 99213; G0463

== ENCOUNTER 2025-10-06 14:06 | Outpatient (CLI) | payer MEDICARE, SELFPAY ==
--- OUTSIDE RECORDS SUMMARY | 2025-10-06 14:09 | XMS_ITS | Clinical Summary ---
Author Organization [facility] Address [address] [place] [address] Phone Care Team Providers Care Tobacco Sorter Name Role Phone Chadwick Harris MD Primary Care Provider Allergies Active Allergy Reactions Criticality Noted Date Comments Tramadol Dizziness Low 07/29/2021 Medications TRIAMTERENE ORAL Take by mouth daily. 01/14/2011 Active fish oil-omega-3 fatty acids (FISH OIL) 340-1,000 mg Oral Cap Take 1 Cap by mouth daily. Active multivitamin (DAILY-LORE) Oral tablet Take 1 Tab by mouth daily. Active cholecalciferol , Vitamin D3, (VITAMIN D3) 1,000 unit Capsule Take by mouth daily. Active lisinopril (PRINIVIL) 10 mg tablet Take 10 mg by mouth daily. Active glimepiride (AMARYL) 2 mg tablet Take 2 mg by mouth daily with breakfast. Active rosuvastatin (CRESTOR) 5 mg tablet 08/25/2020 Active neomycin-polymy rosibel-dexamethaso ne (MAXITROL) 3.5 mg/g-10,000 unit/g-0.1 % ointment 10/25/2020 Active hydroCHLOROthia zide 25 mg tablet 09/22/2020 Active gabapentin (NEURONTIN) 300 mg capsule 08/23/2020 Active fluticasone propionate (FLONASE) 50 mcg/spray [place], Suspension nasal inhaler 10/25/2020 Activ e diltiaZEM (TIAZAC) 120 mg Extended Release capsule 10/25/2020 Act patsy omega-3 fatty acids-fish oil 300-1,000 mg Capsule Take 2 Capsules by mouth. Active multivitamin (MULTIPLE VITAMINS DAILY ORAL) Take by mouth. Active Accu-Chek Valeria Plus test strp Strip 12/01/2020 Active Active Problems Problem Noted Date Diagnosed Date Malignant melanoma of right upper extremity 01/14 Family History Medical History Relation Name Comments Heart Attack Brother Throat Cancer Father Skin Cancer Sister 1 Relation Name Status Comments Brother Alive Daughter 1 Alive Daughter 2 Alive Father Mother Sister 1 Alive Sister 2 Alive Son 1 Alive Son 2 Alive Social History Tobacco Use Types Packs/Day Years Used Date Smoking Tobacco: Former Cigarettes 0.3 20 0 12/17/1990 - 12/17/2010 Smokeless Tobacco: Never Alcohol Use Standard Drinks/Week Comments Yes 0 (1 standard drink = 0.6 oz pur e alcohol) occ Feeling Safe Answer Date Recorded Within the last year, have y ou been afraid of your partner or ex-partner? No 01/24/2021 Within the last year, have y ou been humiliated or emotionally abused in other ways by your partner or ex-partner? No Within the last year, have y ou been kicked, hit, slapped, or otherwise physically hurt by your partner or ex-partner? No 01/24/2021 Within the last year, have y ou been raped or forced to have any kind of sexual activity by your partner or ex-partner? No 01/24/2021 Social Connections Answer Date Recorded In a typical week, how many times do you talk on the phone with family, friends, or neighbors? More than three times a week 01/24/2021 How often do you get togethe r with friends or relatives? Never 01/24/2021 How often do you attend chur or sabianist services? More than 4 times per year 01/24/2021 Do you belong to any clubs o r organizations such as anabaptist groups, unions, fraternal or athletic groups, or school groups? Yes 01/24/2021 How often do you attend meet ings of the clubs or organizations you belong to? More than 4 times per year 01/24/2021 Are you , , di vorced, , never , or living with a partner? 01/24/2021 Financial Resource Strain Answer Date R ecorded How hard is it for you to pa y for the very basics like food, housing, medical care, and heating? Not hard at all 01/24/2021 Food Insecurity Answer Date Recorded Within the past 12 months, y ou worried that your food would run out before you got the money to buy more. Never true 01/25/20 21 Within the past 12 months, t he food you bought just didn't last and you didn't have money to get more. Never true 01/24/2021 Transportation Needs Answer Date Record ed In the past 12 months, has l ack of transportation kept you from medical appointments or from getting medications? No 01/14 In the past 12 months, has l ack of transportation kept you from meetings, work, or from getting things needed for daily living? No 01/24/2021 Comments No Sex and Gender Information Value Date Recorded Sex Assigned at Not on file Legal Sex Female 5:40 AM COMMERCIAL GREEN BUILDING ARCHITECT Gender Identity Not on file Sexual Orientation Not on file Last Filed Vital Signs Vital Sign Reading Time Taken Comments Blood Pressure 142/85 07/29/2022 11:23 AM CDT Pulse 77 07/29/2022 11:23 AM CDT Temperature 36.4 C (97.5 F) 07/29/2022 11:23 AM CDT Respiratory Rate 20 04/05/2016 12:34 PM CDT Oxygen Saturation 95% 07/29/2022 11:23 AM CDT Inhaled Oxygen Concentration - - Weight 75.8 kg (167 lb 3.2 oz) 01/27/2022 10:11 AM CDT Height 154.9 cm (5' 1) 01/27/2022 10:11 AM CDT Body Mass Index 31.59 01/27/2022 10:11 AM CDT Plan of Treatment Health Maintenance Due Date Last Done Comments DIABETES ANNUAL FOOT EXAM 1962 DIABETES HBA1C Q 6 MONTHS 1962 DIABETES MICROALBUMIN ANNUAL SCREEN 1962 LDL CHOLESTEROL ANNUAL 1962 DTAP/TDAP/TD VACCINES (1 - Tdap) 1963 PNEUMOCOCCAL VACCINE 50+ YEARS (1 of 2 - PCV) 07/08/19 63 ZOSTER VACCINE (1 of 2) 1994 OSTEOPOROSIS SCREENING 2009 RSV VACCINE (60+ or ) (1 - 1-dose 75+ series) 2019 DIABETES ANNUAL RETINAL EXAM 07/26/2021 07/26/2020 INFLUENZA VACCINE (#1) 2025 COLORECTAL SCREENING Discontinued 01/14/2011 Colorectal Cancer Screening Discontinued Flex Sig/CT Colonography Q 5 years Discontinued 2010 FIT-DNA Q 3 years Discontinued FIT/FOBT Q 1 year Discontinued Insurance [facility] [id number] Advance Directives For more information, please contact: [phone] * Full Code (Latest Code Status on File) Date Activated Date Inactivated Comments 04/01/2011 7:17 AM 04/02/2011 2:34 AM * Full Code Date Activated Date Inactivated Comments 01/14/2011 1:43 PM 01/15/2011 2:01 AM Care Teams Tobacco Sorter Relationship Specialty Start Date End Date Chadwick Harris MD [address] [place] [id number] PCP - General Internal Medicine 10/17/20
--- OUTSIDE RECORDS SUMMARY | 2025-10-06 14:09 | XMS_ITS | Clinical Summary ---
Author Organization [facility] Address [address] [place] [address] Care Team Providers Care Fur Puller Name Role Phone Chadwick Harris MD Primary Care Provider [phone] Chadwick Harris MD Unavailable [phone] Source Comments [facility],non-owned Affiliates and Associated Physician Practices is amultiple site organization consisting of ambulatory clinics and hospital sitesin [place], [place], [place] and [place]. This disclosure is being madepursuant to the Care Everywhere program and may not contain all information available regarding this patient. Last updated 18.[facility] Allergies No known active allergies Medications * Be aware that medications may not be up to date on this document. Alwaysverify current medications with the patient. hydroCHLOROthia zide (HYDRODIURIL) 25 MG tablet Take 25 mg by mouth once daily Active fenofibrate (LOFIBRA) 160 MG tablet Take 160 mg by mouth once daily Take with largest meal of the day. Active lisinopril (PRINIVIL; ZESTRIL) 10 MG tablet Take 10 mg by mouth once daily Active glimepiride (AMARYL) 2 MG tablet Take 2 mg by mouth daily with breakfast Active atorvastatin (LIPITOR) 10 MG tablet Take 10 mg by mouth at bedtime Active aspirin (ASPIRIN) 81 MG tablet Take 81 mg by mouth once daily Active Multiple Vitamins-Minera ls (MULTI FOR HER 50+ PO) Active [place]-3 Fatty Acids (FISH OIL DELAYED RELEASE) 1000 MG capsule Take 2 capsules by mouth daily with food Active Family History Medical History Relation Name Comments Cancer - Esophageal Father Other - Cardiac Mother Heart attack Relation Name Status Comments Father Mother Social History Tobacco Use Types Packs/Day Years Used Date Smoking Tobacco: Never Smokeless Tobacco: Never Comments No Sex and Gender Information Value Date Recorded Sex Assigned at Not on file Legal Sex Female 10:09 AM PHYSIOLOGIST Gender Identity Not on file Sexual Orientation Not on file Last Filed Vital Signs Vital Sign Reading Time Taken Comments Blood Pressure 116/70 07/11/2018 10:28 AM CDT Pulse 87 07/11/2018 10:28 AM CDT Temperature 36.7 C (98.1 F) 07/11/2018 10:28 AM CDT Respiratory Rate 16 07/11/2018 10:28 AM CDT Oxygen Saturation 97% 07/11/2018 10:28 AM CDT Inhaled Oxygen Concentration - - Weight 72.6 kg (160 lb) 07/11/2018 10:28 AM CDT Height 154.9 cm (5' 1) 07/11/2018 10:28 AM CDT Body Mass Index 30.23 07/11/2018 10:28 AM CDT Plan of Treatment Health Maintenance Due Date Last Done Comments BONE DENSITY TESTING 1945 DTAP/TDAP/TD VACCINES (1 - Tdap) 1963 PNEUMOCOCCAL VACCINE 50+ (1 of 1 - PCV) 1994 ZOSTER VACCINE (1 of 2) 1994 Respiratory Syncytial Virus (RSV) Vaccine Pt: or over 60 yrs (1 - 1-dose 75+ series) 2019 DEPRESSION SCREENING 11/16/2024 COVID-19 VACCINE (1 - 2024-2 6 season) 2025 INFLUENZA VACCINE (#1) 2025 HEPATITIS B VACCINE Aged Out No longe r eligible based on patient's age to complete this topic HIB VACCINE Aged Out No longer eligi ble based on patient's age to complete this topic HPV VACCINE Aged Out No longer eligi ble based on patient's age to complete this topic MENINGOCOCCAL (Group B) VACC INE SHARED DECISION-MAKING Aged Out No longer eligibl e based on patient's age to complete this topic MENINGOCOCCAL GROUPS A/C/Y/W VACCINE Aged Out No longer eligible b ased on patient's age to complete this topic Insurance MANAGED MEDICARE ADV Care Teams Fur Puller Relationship Specialty Start Date End Date Chadwick Harris MD [address] [place] [address] PCP - General 08/30/20 Chadwick Harris MD [address] [place] [address] Internal Medicine 08/30/20
--- OUTSIDE RECORDS SUMMARY | 2025-10-06 14:09 | XMS_ITS | Encounter Summary ---
Author Organization [facility] Address [address] [place] [address] Care Team Providers Care Gardening Instructor Name Role Phone Chadwick Harris MD Primary Care Provider [phone] Encounter Details Date Type Department Care Team (Late st Contact Info) Description 10/10/2008 Outpatient Historical [facility] Braden Khan MD [address] [place] [phone] Social History Tobacco Use Types Packs/Day Years Used Date Smoking Tobacco: Never Assessed Comments Unknown Sex and Gender Information Value Date Recorded Sex Assigned at Not on file Legal Sex Female 5:40 AM FINANCIAL AID ADVISOR Gender Identity Not on file Sexual Orientation Not on file documented as of this encounter Plan of Treatment Not on file documented as of this encounter Procedures Procedure Name Priority Date/Time Associated Diagnosis Comments PATHOLOGY Routine 10/10/2008 3:32 PM FINANCIAL AID ADVISOR documented in this encounter Results * PATHOLOGY (10/10/2008 3:32 PM FINANCIAL AID ADVISOR) FINAL REPORT [address] [address] Patient: MARY KATE WHITMAN : 1945 Procedure Date: 10/10/2008 Accession Date: 10/10/2008 Case No: [id number] Ordering Dr: BRADEN KHAN Case types AW, BW, FW, NW and SH are performed by [facility], [place], [place] SURGICAL PATHOLOGY & NON-GYNECOLOGIC CYTOPATHOLOGY REPORT DIAGNOSIS SMALL INTESTINE, ILEUM, BIOPSY: - NO PATHOLOGIC DIAGNOSIS. LARGE INTESTINE, RANDOM, BIOPSY: - NO PATHOLOGIC DIAGNOSIS. LARGE INTESTINE, SIGMOID, BIOPSY: - MILD ACUTE AND CHRONIC INFLAMMATION AND EDEMA (SEE MICROSCOPIC DESCRIPTION). Specimen Description: (1) Ileum; (2) colon random; (3) sigmoid. Operative Procedure: Colonoscopy. Patient Information/History /Diagnosis: (1) History of ileitis; (2) Normal colon? History of Crohn; (3) Acute inflammation; please help characterize; endoscopic appearance is nonspecific; infectious versus other; diverticular inflammation; ? diverticulitis. Gross: The specimens are received in three containers, each labeled Mary Kate Whitman. Received in the first container and labeled terminal ileum is a 0.3 x 0.2 x 0.1-cm velazquez piece of tissue. The entire specimen is submitted in cassette A1. Received in the second container and labeled random colon are four pieces of velazquez tissue ranging from 0.1 to 0.4 cm in greatest dimension. The entire specimen is submitted in cassette B1. Received in the third container and labeled sigmoid is a 0.3 x 0.1 x 0.1- cm velazquez piece of tissue. The entire specimen is submitted in cassette C1. [facility] 10.11.2008 06:01 am Microscopic: The slides are labeled [id number], Mary Kate Whitman. Sections of the ileal biopsy show small intestinal mucosa with preservation of villous architecture, where orientation allows its evaluation. There is a prominent lymphoid aggregate, normal for site. There is no active inflammation, crypt distortion, or increase in lamina propria chronic inflammatory cells. There is no intraepithelial lymphocytosis. The mucosa is entirely normal. Sections of the random colon biopsies show normal colonic mucosa, with no active inflammation, no increase in intraepithelial lymphocytosis, and no granulomas. There are no chronic crypt architectural changes. There is no evidence of dysplasia. Sections of the sigmoid colon biopsy show colonic mucosa with lamina propria edema, very mild acute and chronic inflammation and mucin depletion in crypt epithelium. The appearance is very mild and nonspecific, but is consistent with the clinical impression of peridiverticular inflammation related to diverticulitis. WILIAM/MAHI 10.11.2008 10:45 am Staging Form: No. ELECTRONIC SIGNATURE FOR INO ALEJANDRO MD- 10/11/08 10:55 am INTERFACE SYSTEM 10/10/2008 3:32 PM FINANCIAL AID ADVISOR us Braden Khan MD PATHOLOGY/CYTOLOGY MIKA MCCLURE Final Result INTERFACE SYSTEM Refer to clinic/hospital department documented in this encounter Visit Diagnoses Not on filedocumented in this encounter Care Teams Gardening Instructor Relationship Specialty Start Date End Date Chadwick Harris MD [address] [place] [phone] PCP - General Internal Medicine 10/17/20 documented as of this encounter
--- OUTSIDE RECORDS SUMMARY | 2025-10-06 14:09 | XMS_ITS | Patient Health Record ---
Author Organization [facility] Address [address] [place], [place] [id number] Care Team Providers Care Exhibition Specialist Name Role Phone IsaelSKYE patel Unavailable Derek Mehta Unavailable Unavailable Reason For Referral No Information Medications Medication SIG (Take, Route, Frequency, Duration) Notes Start Date End Date Status Glimepiride 1 MG Oral Tablet ORAL glimepiride 1 MG Oral TabletOriginal Medicationglimepiride 1 MG Oral Tablet *Reorder from Blurb for eRx and Interaction Alerts* 04/17/2014 Active Lisinopril 10 MG Oral Tablet ORAL lisinopril 10 MG Oral TabletOriginal Medicationlisinopril 10 MG Oral Tablet *Reorder from Blurb for eRx and Interaction Alerts* 04/17/2014 Active aspirin 81 MG Delayed Release Oral Tablet ORAL aspirin 81 MG Delayed Release Oral TabletOriginal Medicationaspirin 81 MG Delayed Release Oral Tablet *Reorder from Blurb for eRx and Interaction Alerts* 04/17/2014 Active metformin hydrochloride 500 MG Oral Tablet ORAL metformin hydrochloride 500 MG Oral TabletOriginal Medicationmetformin hydrochloride 500 MG Oral Tablet *Reorder from Blurb for eRx and Interaction Alerts* 04/17/2014 Active Fenofibrate 160 MG Oral Tablet ORAL fenofibrate 160 MG Oral TabletOriginal Medicationfenofibrate 160 MG Oral Tablet *Reorder from Blurb for eRx and Interaction Alerts* 04/17/2014 Active amlodipine 10 MG Oral Tablet ORAL amlodipine 10 MG Oral TabletOriginal Medicationamlodipine 10 MG Oral Tablet *Reorder from Medispan for eRx and Interaction Alerts* 04/17/2014 Active Social History Social History Additional Details Category Social Info Options Details Migrated Social History Migrated Social History History of tobacco use : , Smoking Status : Never smoked Plan Of Treatment No Information Insurance Providers Payer Name Payer Address Payer Phone Subscriber Number Group Number Insured Name Patient Relationship to Insured Coverage Start Date Coverage End Date [facility] [address] [address] [place] [address] [id number] EDWIGE REESE Self - patient is the insured
--- OUTSIDE RECORDS SUMMARY | 2025-10-06 14:09 | XMS_ITS | Patient Health Record ---
Author Organization [employer] Address [address] [facility] [email or web address] [address] [place] [phone] Care Team Providers Care Clinical Resource Coordinator Name Role Phone Derek Mehta MD Primary Care Provider Unavaila ble Reason For Referral No Information Plan Of Treatment No Information Insurance Providers Payer Name Payer Address Payer Phone Subscriber Number Group Number Insured Name Patient Relationship to Insured Coverage Start Date Coverage End Date [facility] Medicare [facility] [address] [address] [place] [address] [id number] Mary Kate Mathew i Self - patient is the insured
--- OUTSIDE RECORDS SUMMARY | 2025-10-06 14:09 | XMS_ITS | Clinical Summary ---
Author Organization [facility] Address [address] [place] [address] Care Team Providers Care Turpentiner Name Role Phone Chadwick Harris MD Primary Care Provider [phone] Allergies Active Allergy Reactions Criticality Noted Date Comments Tramadol Dizziness Low 07/29/2021 Medications gabapentin (NEURONTIN) 300 mg capsule 08/26/2021 Active glimepiride (AMARYL) 2 mg tablet Take 2 mg by mouth Active diltiazem (TIAZAC) 120 mg 24 hr capsule 10/25/2020 Activ e cholecalciferol (VITAMIN D-3) 1,000 unit capsule Take by mouth daily Active blood glucose diagnostic (Accu-Chek Valeria Plus test strp) strip 12/01/2020 Active aspirin (Aspirin Childrens) 81 mg chewable tablet Take 81 mg by mouth daily Active erythromycin (ILOTYCIN) ophthalmic ointment 08/23/2020 Active hydroCHLOROthia zide (HYDRODIURIL) 25 mg tablet 09/22/2020 Active lisinopriL (PRINIVIL,ZESTR [place]) 10 mg tablet Take 10 mg by mouth daily Active omega-3 fatty acids-fish oil 340-1,000 mg capsule Take 1 capsule by mouth daily Active rosuvastatin (CRESTOR) 5 mg tablet 08/25/2020 Active Active Problems Problem Noted Date Diagnosed Date Sensorineural hearing loss, bilateral 10/14/2021 Hearing loss 10/14/2021 Surgical History Surgery Date Site/Laterality Comments TOE SURGERY HYSTERECTOMY Medical History Medical History Date Comments Allergic rhinitis Cancer (HCC) Cataracts, bilateral DVT (deep vein thrombosis) in Diabetes Hypertension Kidney disease Family History Medical History Relation Name Comments Heart disease Brother Cancer Father Relation Name Status Comments Brother Father Social History Tobacco Use Types Packs/Day Years Used Date Smoking Tobacco: Never Comments Unknown Sex and Gender Information Value Date Recorded Sex Assigned at Not on file Legal Sex Female 5:38 PM LEAF TINNER Gender Identity Not on file Sexual Orientation Not on file Last Filed Vital Signs Vital Sign Reading Time Taken Comments Blood Pressure 181/94 10/14/2021 10:05 AM LEAF TINNER Pulse 73 10/14/2021 10:05 AM LEAF TINNER Temperature - - Respiratory Rate - - Oxygen Saturation - - Inhaled Oxygen Concentration - - Weight 76.2 kg (168 lb) 10/14/2021 10:05 AM LEAF TINNER Height 154.9 cm (5' 1) 10/14/2021 10:05 AM LEAF TINNER Body Mass Index 31.74 10/14/2021 10:05 AM LEAF TINNER Plan of Treatment Not on file Insurance [facility] MEDICARE ADVANTAGE Care Teams Turpentiner Relationship Specialty Start Date End Date Chadwick Harris MD [address] [place] [address] PCP - General Internal Medicine 10/14/21
--- OUTSIDE RECORDS SUMMARY | 2025-10-06 14:09 | XMS_ITS | Clinical Summary ---
Author Organization [facility] Address [address], [address] [address] Phone Care Team Providers Care Edger Technician Name Role Phone Derek Mehta MD Primary Care Provider [phone] Medications polyethylene glycol (MIRALAX) Powder Use entire 255g bottle with 64oz of clear liquid as directed for colonoscopy prep. 255 g 0 7 Active Social History Tobacco Use Types Packs/Day Years Used Date Smoking Tobacco: Never Assessed Comments Unknown Sex and Gender Information Value Date Recorded Sex Assigned at Not on file Legal Sex Female 9:13 PM CDT Gender Identity Not on file Sexual Orientation Not on file Plan of Treatment Health Maintenance Due Date Last Done Comments Hepatitis C Virus (HCV) Screening 1945 TdaP Immunization 1945 Varicella Immunization (1 of 2 - 13+ 2-dose series) 1957 Pneumococcal Immunization (5 0+ years) (1 of 1 - PCV) 1994 Zoster Immunization (1 of 2) 1994 Respiratory Syncytial Virus (RSV) Immunization (Adult) (1 - 1-dose 75+ series) 2019 Medicare Initial AWV [id number] 03/16/2024 Influenza Immunization (#1) 2025 SARS-COV-2 Immunization ( - season) 2025 Hepatitis B Immunization Aged Out No longer eligible based on patient's age to complete this topic Human Papillomavirus (HPV) Immunization Aged Out No longer eligible b ased on patient's age to complete this topic Meningococcal Immunization (ACWY) Aged Out No longer eligible based on patient's age to complete this topic Rotavirus Immunization Aged Out No lo nger eligible based on patient's age to complete this topic Insurance MEDICARE C [employer] on file Care Teams Edger Technician Relationship Specialty Start Date End Date Derek Mehta MD [address] [place] [address] PCP - General Family Medicine 03/24/17
[2025-10-06 18:35] LABS: Anion Gap 6 mmol/L (4-12); Blood Urea Nitrogen 36 mg/dL (7-17); Calcium 9.7 mg/dL (8.4-10.2); Carbon Dioxide 28 mmol/L (22-30); Chloride 108 mmol/L (98-107); Estimated Glomerular Filt Rate 40; Glucose 184 mg/dL (65-110); Potassium 4.0 mmol/L (3.4-5.0); Sodium 142 mmol/L (137-145)
== END 2025-10-06 14:07 | disposition home or self-care (01) ==
PROVIDERS: PCP Nurse Practitioner; Visit Provider Nurse Practitioner
DX: N18.9 Chronic kidney disease, unspecified (principal)
CPT/HCPCS: 36415; 80048